=== PATIENT | male | born 2000 | race Caucasian/White ===

== ENCOUNTER → 2023-02-08 10:36 | Outpatient (REF) | payer MEDICARE, MEDICAID, SELFPAY ==
--- NOTE | 2023-02-08 10:40 | HM_ITS ---
* Total monitoring time 2 days and 6 hours. * Underlying rhythm is sinus. Average ventricular rate 86/Min. Range 52 to 153/Min. * About 25% of the time, rate > 100/Min. * No significant ectopy. * No significant pauses or AV blocks. * No atrial flutter or fibrillation. * Patient markers correlate with sinus rhythm and sinus tachycardia. Diary events include fast heartbeat which correlate with patient markers. MTDD
== END ==
LOC: HO.CARD 10:36
PROVIDERS: PCP Family Medicine; Visit Provider Family Medicine
DX: R00.2 Palpitations (principal)
CPT/HCPCS: 93225

== ENCOUNTER 2023-02-13 09:57 | Outpatient (REF) | payer MEDICARE, MEDICAID, SELFPAY ==
--- NOTE | ~2023-02-13 | XR_ITS ---
EXAMINATION: XR chest 2V CLINICAL INFORMATION: Reason for Exam R00.2 - Palpitations COMPARISON: No prior chest x-ray available in our system for comparison at the time of this dictation. TECHNIQUE: XR chest 2V Lungs and [place]: Both lungs are clear. Pleura: Normal. Costophrenic angles are sharp. No pneumothorax. Heart: The heart is normal in size. Mediastinum: The mediastinum is within normal limits.. Bones: Skeletal structures included are normal for patient's age. XR/XR chest 2V IMPRESSION: No radiographic evidence of acute cardiopulmonary disease.
[2023-02-13 11:16] LABS: MANUAL DIFF FLAG NO
[2023-02-13 11:18] LABS: Basophils Percent Auto 0.5 % (0-2); Hematocrit 41.8 % (42.0-52.0); Imm Gran Abs Auto 0.01 X10*3/uL (0.00-0.03); Imm Gran Pct Auto 0.3 % (0.0-0.4); Lymphocytes Percent Auto 25.3 % (20-40); Mean Corpuscular HGB Conc 33.5 g/dl (31.0-36.0); Mean Corpuscular Hemoglobin 29.9 pg (27.0-33.0); Mean Corpuscular Volume 89.1 fL (80.0-98.0); Monocytes Absolute Auto 0.2 X10*3/uL (0.1-1.2); Monocytes Percent Auto 6.3 % (2-11); Neutrophils Absolute Auto 2.6 x10*3/uL (2.0-8.3); Neutrophils Percent Auto 66.6 % (45-73); Platelet Count 183 X10*3/uL (160-400); Red Blood Count 4.69 X10*6/uL (4.60-5.80); Red Cell Distribution Width 11.9 % (11.0-16.0); White Blood Count 3.8 X10*3/uL (4.8-10.8)
[2023-02-13 11:27] LABS: Appearance Urine Clear; Color Urine Yellow; Glucose Urine UA Negative (Negative); Leukocyte Esterase Urine Negative (Negative); Nitrite Urine Negative (Negative); Urine Blood Negative (Negative); Urine Ketones Negative (Negative); Urine Protein Negative (Neg-Trace)
[2023-02-13 12:14] LABS: D Dimer High Sensitivity 909 NG/ML
[2023-02-13 12:17] LABS: Alanine Aminotransferase 18 U/L (0-40); Albumin Level 4.6 g/dL (3.5-5.0); Alkaline Phosphatase 82 U/L (39-117); Anion Gap 10 (12-20); Aspartate Amino Transferase 20 U/L (5-37); Bilirubin Total 0.5 mg/dL (0.0-1.0); Blood Urea Nitrogen 11 mg/dL (9-16); Calcium 10.1 mg/dL (8.4-10.2); Carbon Dioxide 31 mmol/L (22-29); Chloride 104 mmol/L (96-108); Cholesterol 144 mg/dL; Estimated Glomerular Filt Rate > 60; Glucose Fasting 85 mg/dL (60-99); HDL Cholesterol 50 mg/dL; Potassium 4.6 mmol/L (3.3-5.1); Sodium 140 mmol/L (135-145)
[2023-02-13 12:27] LABS: Troponin-I High Sensitivity < 2.7 ng/L (<3.5-35.0)
[2023-02-13 13:07] LABS: TSH reflex Free T4 0.59 uIU/mL (0.32-4.0)
[2023-02-13 13:27] LABS: CT PCR NOT DETECTED (Not Detect.); NG PCR NOT DETECTED (Not Detect.)
[2023-02-13 16:01] LABS: LDL Cholesterol Calculated 83 mg/dl; Triglycerides 57 mg/dL
[2023-02-15 08:49] LABS: HBS Num1 2.31 mIU/mL (0-7.99); HBc Num1 0.13 S/CO (0.00-0.79); HBsAGNum1 0.38 S/CO (0.00-0.99); HIV AB/AG Nonreactive (Nonreactive); HIV Num 1 0.08 S/CO (0.00-0.99); Hepatitis B Core Antibody Nonreactive (Nonreactive); Hepatitis B Surface Antigen Negative (Negative); ~HepC Num1 0.24 S/CO (0.00-0.79); ~Hepatitis B Surface Antibody NONREACTIVE (Nonreactive); ~Hepatitis C Antibody Nonreactive (Nonreactive)
[2023-02-15 09:09] LABS: Syphilis Screen Nonreactive (Nonreactive)
== END 2023-02-13 09:58 | disposition home or self-care (01) ==
LOC: HO.HMGCLDS 09:57
PROVIDERS: PCP Family Medicine; Visit Provider Family Medicine
DX: Z00.00 Encounter for general adult medical examination without abnormal findings (principal); Z11.4 Encounter for screening for human immunodeficiency virus [HIV]; R00.2 Palpitations; Z20.2 Contact with and (suspected) exposure to infections with a predominantly sexual mode of transmission; Z11.59 Encounter for screening for other viral diseases; Z72.89 Other problems related to lifestyle
CPT/HCPCS: 0353U; 71046; 80053; 80061; 81003; 84443; 84484; 85025; 85379; 86704; 86706; 86780; 86803; 87340; 87389

== ENCOUNTER 2024-12-13 14:48 | Outpatient (AMB) | payer MEDICARE, MEDICAID, SELFPAY ==
--- NOTE | 2024-12-13 15:10 | MHC.PC.OV ---
Vital Signs 12/13/24 15:14 Height 6 ft 3 in Weight 194 lb BMI 24.2 BP 120/64 Blood Pressure Location Rt brachial Position Sitting Respiration 14 Pulse 71 Pulse Source Pulse Oximeter Temp 97.8 F Temp Source Oral Pulse Oximetry (%) 97 Oxygen Delivery Method Room Air Intake Visit Reasons: Stomach ache Intake Note: pt having GI sx constant burping and upset stomache Or Scrub Tech Required: No Allergies guaifenesin Allergy (Mild, Verified 12/13/24 15:13) ticks Medication List - Last Reconciled 12/13/24 by Brendan Shabazz MD methylphenidate HCl CD 60 mg PO QAM omeprazole 20 mg PO DAILY 30 days sertraline 50 mg PO DAILY simethicone 80 mg PO BID-QID PRN 30 days Tobacco use date assessed: 02/02/23 HPI Stomach ache HPI Details 24 y/o male presents today with complaints of abd. discomfort. Notes some pain, belching. Hx of ADD - has tried numerous medications and they note it tends to worsen palpitations. Had done a holter test before for palpitations which showed some tachycardia. HPI Comments History of Present Illness Details Documentation assistance for Brendan Shabazz MD, was provided by Virgilio Joe,? Psych Sales Specialist on 12/13/2024 at 3:37 PM EST. I, Dr. Shabazz, have read, observed, and verified documentation. ?? [facility] Medical History (Updated 12/13/24 @ 15:42 by Brendan Shabazz MD) Tourettes syndrome Surgical History (Updated 02/02/23 @ 16:13 by Estrella Tan CMA) No pertinent past surgical history Social History (Updated 02/02/23 @ 16:13 by Estrella Tan CMA) Alcohol intake: never Patient Tobacco Use Status: Never used Tobacco e-Cigarette/Vaping Use: Never Used Second Hand Smoke Exposure: No service: No Current occupational exposures/hazards: No Hearing needs: No Questionnaire PHQ-9 Over the last 2 weeks, how often have you been bothered by any of the following problems? 1. Little interest or pleasure in doing things: not at all 2. Feeling down, depressed, or hopeless: not at all 3. Trouble falling or staying asleep, or sleeping too much: not at all 4. Feeling tired or having little energy: not at all 5. Poor appetite or overeating: not at all 6. Feeling bad about yourself - or that you are a failure or have let yourself or your family down: not at all 7. Trouble concentrating on things, such as reading the newspaper or watching television: not at all 8. Moving or speaking so slowly that other people could have noticed. Or the opposite - being so fidgety or restless that you have been moving around a lot more than usual: not at all 9. Thoughts that you would be better off or of hurting yourself in some way: not at all Total score: 0 Source: Developed by Drs. David Mijares, Radha Levy, Cj Enamorado and colleagues, with an educational jorge from [employer]. Thrive Questionnaire Date Thrive assessed: 10/20/22 I am a: Patient What is your living situation today?: I have a steady place to live Within the past 12 months, did the food you bought not last and you didn't have the money to get more?: Never true Within the past 12 months, did you worry whether your food would run out before you got money to buy more?: Never true Do you have trouble paying for medicines?: No Do you have trouble getting transportation to medical appointments?: No Do you have trouble paying your heating and electricity bill?: No Do you have trouble taking care of your child, family member or friend?: No Do you have trouble with day-to-day activities such as bathing, preparing meals, shopping, managing finances, etc.?: No Are you currently unemployed and looking for a job?: No Are you interested in more education?: No Please select the resources that you would like help with: None Currently or been in a relationship where the following occur: I choose not to answer THRIVE Score: 0 AUDIT C Alcohol Use Questionnaire (AUDIT-C) 1. How often do you have a drink containing alcohol?: Never Total Score: 0 JUANY-7 AMB Questionnaire JUANY-7 Date JUANY - 7 assessed: 10/20/22 Feeling nervous, anxious, or on edge: 0 = Not at all Not being able to stop or control worryin = Not at all Worrying too much about different things: 0 = Not at all Trouble relaxin = Not at all Being so restless that it is hard to sit still: 0 = Not at all Becoming easily annoyed or irritable: 0 = Not at all Feeling afraid as if something awful might happen: 0 = Not at all Total JUANY-7 score (0-4 normal; 5-9 mild; 10-14 moderate; 15-21 severe): 0 Source: Developed by Drs. David Mijares, Radha eLvy, Cj Enamorado and colleagues, with an educational jorge from [employer]. Review of Systems Const Denies chills, Denies fatigue, Denies fever(s), Denies headache(s) and Denies weakness ENT Denies dizziness and Denies headache(s) Card Denies dyspnea Resp Denies cough, Denies dyspnea, Denies wheezing and Denies other (shortness of breath) GI Reports abdominal pain Musc Denies numbness and Denies tingling Neuro Denies dizziness, Denies headache(s), Denies numbness, Denies tingling and Denies weakness Psych Denies anxiety and Denies depression Endo Denies fatigue Aller/Immun Denies wheezing Physical exam (Primary Care) Vital Signs: Last Vital Signs Temp 97.8 F 12/13/24 15:14 Pulse 71 12/13/24 15:14 Resp 14 12/13/24 15:14 BP 120/64 12/13/24 15:14 Pulse Ox 97 12/13/24 15:14 Oxygen Delivery Method Room Air 12/13/24 15:14 BMI result Body Mass Index 24.2 Tobacco/Smoking Status: Tobacco use Status Tobacco use date assessed 02/02/23 12/13/24 15:11 Patient Tobacco Use Status Never used Tobacco 12/13/24 15:11 e-Cigarette/Vaping Use Never Used 12/13/24 15:11 PHQ-9: PHQ-9 Score PHQ-9: Total score 0 12/13/24 15:26 Thrive Assessment: Date of Thrive Assessment Date Thrive assessed 10/20/22 12/13/24 15:11 Currently or been in a relationship where the following occur: I choose not to answer Const General: well developed; No acute distress Nutritional Appearance: well nourished Orientation/consciousness: patient oriented x3 HENMT Head: Yes normocephalic and Yes atraumatic Eyes General: appearance normal, both eyes and all related structures Pupils: Equal, round and reactive pupils present EOM: EOMs intact bilaterally Resp Effort & Inspection: normal respiratory effort Neuro General: patient oriented x3 and gait normal Cranial nerves: Yes Equal, round and reactive pupils present Psych Affect: normal affect Coding Level of Care Code Est Pt Level 4 (54121) Diagnoses Abdominal discomfort R10.9 ADD (attention deficit disorder) F98.8 Palpitations R00.2 Assessment & Plan Assessment & Plan (1) Abdominal discomfort: Code(s): R10.9 - Unspecified abdominal pain Category: Medical Plan: Gas?and?burping Eat?more?slowly Avoid?trigger?foods?fluids. Hydrate?well Try?simethicone Trial?omeprazole Symptoms?diary?recommended Referred?to?Gastroenterology (2) ADD (attention deficit disorder): Code(s): F98.8 - Other specified behavioral and emotional disorders with onset usually occurring in childhood and adolescence Category: Medical Plan: History?of?ADD?and?patient?has?a?specialist?who?has?tried?numerous?medications?however?they?tend?to?worsen?palpitations. Patient?had?an?EKG?and?Holter?monitor?test?in?2022.??EKG?was?normal. Will?retest?showed?some?tachycardia Repeat?EKG?today: ?Normal?sinus?rhythm, normal?axis, no?hypertrophy. ?Early?repolarization?ST?changes, in young thin patient. Will?repeat?Holter?monitor?test. Referred?to?cardiology (3) Palpitations: Code(s): R00.2 - Palpitations Category: Medical Plan: As?above,?referred?to?Cardiology Orders: Orders ECG holter monitor 48 hour Today R00.2 - Palpitations AMB EKG-In Office Today R00.2 - Palpitations Referrals Cardiology Referral R00.2 - Palpitations Gastroenterology Referral R10.9 - Unspecified abdominal pain, R14.0 - Abdominal distension (gaseous) Medications: New omeprazole 20 mg PO DAILY 30 days 30 caps 0RF simethicone 80 mg PO BID-QID 30 days PRN 120 tabs 0RF abdominal distention
[2024-12-13 15:14] VITALS: BP 120/64; PULSE 71; RESP 14; TEMP 36.6; O2SAT 97; BMI 24.2
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
--- OUTSIDE RECORDS SUMMARY | 2024-12-13 18:16 | XMS_ITS | Encounter Summary ---
Author Organization [facility] Address [address] [place] [address] Phone Care Team Providers Care Cardiopulmonary Technologist Name Role Phone Provider, Pola DE LEON Primary Care Provider [phone] Encounter Details Date Type Department Care Team (Late st Contact Info) Description 01/06/2010 Documentation [facility] Family Medicine [address] [place] [address] Family Medicine, Physician [address] [place], [place] [id number] Social History Tobacco Use Types Packs/Day Years Used Date Smoking Tobacco: Never Assessed Sex and Gender Information Value Date Recorded Sex Assigned at Male 07/21/2019 3:26 PM EDT Legal Sex Male 6:14 PM EDT Gender Identity Male 07/21/2019 3:26 PM EDT Sexual Orientation Straight 07/21/2019 3: 26 PM EDT documented as of this encounter Plan of Treatment Not on file documented as of this encounter Visit Diagnoses Not on filedocumented in this encounter Care Teams Cardiopulmonary Technologist Relationship Specialty Start Date End Date Provider, MD Pola [address] [place] [address] PCP - General Pediatrics 05/12/22 08/16/24 documented as of this encounter
--- OUTSIDE RECORDS SUMMARY | 2024-12-13 18:16 | XMS_ITS | Encounter Summary ---
Author Organization [facility] Address [address] [place] [address] Phone Care Team Providers Care Chief Innovation Officer Name Role Phone Provider, Pola DE LEON Primary Care Provider [phone] Encounter Details Date Type Department Care Team (Late st Contact Info) Description 03/11/2010 Documentation [facility] Family Medicine [address] [place] [address] Family Medicine, Physician [address] [place], [place] [address] Social History Tobacco Use Types Packs/Day Years [...] on filedocumented in this encounter Care Teams Chief Innovation Officer Relationship Specialty Start Date End Date Provider, MD Pola [address] [place] [address] PCP - General Pediatrics 05/12/22 08/16/24 documented as of this encounter
--- OUTSIDE RECORDS SUMMARY | 2024-12-13 18:16 | XMS_ITS | Clinical Summary ---
Author Organization [facility] it[facility] Address [address] [place] [address] Care Team Providers Care Microfilming Document Preparer Name Role Phone Unavailable Primary Care Provider Unavailabl e Social History Tobacco Use Types Packs/Day Years Used Date Smoking Tobacco: Never Assessed Sex and Gender Information Value Date Recorded Sex Assigned at Not on file Legal Sex Male 8:36 PM EST Gender Identity Not on file Sexual Orientation Not on file Plan of Treatment Health Maintenance Due Date Last Done Comments HPV Vaccines (1 - Male 3-dos e series) 2016 Meningococcal B Vacine (1 of 2 - Standard) 2017 DTaP,Tdap,and Td Vaccines (1 - Tdap) 2020 Hepatitis B Vaccines (1 of 3 - 19+ 3-dose series) 2020 Depression Screening 11/12/2023 HIV Screening 11/12/2023 Hepatitis C Screening 11/12/2023 Social Influencers of Health Screening 11/12/2023 COVID-19 Vaccine (1 - 2023-2 5 season) 2024 Influenza Vaccine (#1) 2024 HIB Vaccines Aged Out No longer eligi ble based on patient's age to complete this topic Hepatitis A Vaccines Aged Out No long er eligible based on patient's age to complete this topic IPV Vaccines Aged Out No longer eligi ble based on patient's age to complete this topic MMR Vaccines Aged Out No longer eligi ble based on patient's age to complete this topic Meningococcal ACWY Vaccine Aged Out N o longer eligible based on patient's age to complete this topic Pneumococcal Vaccine: Pediat rics (0 to 5 Years) and At-Risk Patients (6 to 64 Years) Aged Out No longer eligible b ased on patient's age to complete this topic RSV Immunization Patients Un francis 20 months Aged Out No longer eligible b ased on patient's age to complete this topic Varicella Vaccines Aged Out No longer eligible based on patient's age to complete this topic
--- OUTSIDE RECORDS SUMMARY | 2024-12-13 18:16 | XMS_ITS | Clinical Summary ---
Author Organization [facility] Address [address] [place] [address] Phone Care Team Providers Care Pie Baker Name Role Phone Unavailable Primary Care Provider Unavailabl e Allergies Active Allergy Reactions Criticality Noted Date Comments Atomoxetine Gluten Meal Guanfacine Medications adapalene 0.1 % cream APPLY CREAM EXTERNALLY AT BEDTIME 0 9 Active BENZOYL PEROXIDE 10 % external wash APPLY TWICE A DAY TO [place] AND ONCE IN THE MORNING TO THE FACE 1 9 Active clindamycin 1 % gel APPLY TO FACE IN THE MORNING AFTER USING BENZOYL PEROXIDE WASH DIRECTED 0 9 Active CONCERTA 54 MG CR tablet TAKE ONE TABLET BY MOUTH EVERY DAY IN THE MORNING. FOR ADHD 0 9 Active Differin 0.1 % gel APPLY ONE APPLICATION EXTERNAL AT BEDTIME TO BACK AND FACE 2 0 Active clindamycin 1 % lotion APPLY 1 APPLICATION TO TRUNK AND FACE TWICE A DAY 5 0 Active sertraline 100 MG tablet Take 100 mg by mouth once daily. 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 Immunizations Immunization Administration Dates Next Due COVID-19 Pfizer, monovalent, 12+ years 1 DTaP 12/22/2006, 3,04/28/2002,11/29 DTaP 5 12/22/2006, 3,04/28/2002,01/31,2001 HPV Vaccine 9 Valent 05/23/2019,01/17/2019,07/20 Hep A, ped/adol 07/21/2019,07/20/2018 Hep B, ped/adol 07/03/2002,2001,2001 Hib (PRP-T) 01/17/2003, 2,01/31/2002,11/29 IPV 12/22/2006, 2,01/31/2002,11/29 MMR 11/10/2005,09/26/2002 Meningococcal Conj (Menactra) MCV4P 07/20/2018,0 10/26/2012 Pneumococcal Conjugate 05/18/2003,2001,01/31/2002,11/29 Tdap 10/26/2012 Varicella 12/22/2006,09/26/2002 Family History Medical History Relation Name Comments Anxiety disorder Father Diabetes Maternal Grandmother Hyperlipidemia Mother Migraines Mother Relation Name Status Comments Brother radha Alive Brother: Alive and well Father Alive Father: Alive a nd well/anxiety disorder Maternal Grandfather Maternal Grandmother Alive DM type 2 diagnosed with DMII WO CMP NT ST UNCNTR Mother Alive Mother: Migrain es, Elevated cholesterol Other Family history of Diabetes mellitus, Family history of Asthma, Family history of Developmental dislocation of hip, Family history of Obesity/Siblings: one twin brother healthy Paternal Grandfather Paternal Grandmother Alive stomach issues Social History Tobacco Use Types Packs/Day Years Used Date Smoking Tobacco: Never Smokeless Tobacco: Never Hunger/Food Answer Date Recorded In the last 12 months, did y ou or your family ever eat less than you felt you should because there wasn't enough money for food? No 07/31/2020 Stable Housing Answer Date Recorded Are you worried that in the next 2 months you may not have stable housing? No 07/31/2020 Transportation Concerns Answer Date Rec orded In the last 12 months, have you or your family ever had to go without healthcare because you didn't have a way to get there? No 07/31/2020 Hazards in Home Answer Date Recorded Think about the place you li ve. Do you have problems with any of the following? Pests (mice or roaches), mold, no/not working smoke detectors, water leaks, no window guards. No 2019 Financing Utilities Answer Date Recorde d In the last 12 months, has t he electric, gas, oil, or water company threatened to shut off your services in your home? No 07/31/2020 Safety at Home Answer Date Recorded Are you or your family worried about feeling saf e in your home? No 07/31/2020 Outside Support Answer Date Recorded Do you feel that you need mo re support from other people or programs to help you care for yourself or your family? No 07/31/2020 Understanding Health Concerns Answer Da te Recorded Do you need help understandi ng your or your child's healthcare needs (diagnosis, medications, plan, etc.)? No 07/31/2020 Financing Health Concerns Answer Date R ecorded In the last 12 months, was t here a time when your child needed to see a doctor or get medications or supplies but could not because of cost? No 07/31/2020 Missing School or Work Answer Date Maximino rded Did you or your child miss s chool or work because of a health problem that could have been avoided? No 07/31/2020 Sex and Gender Information Value Date Recorded Sex Assigned at Male 07/21/2019 3:26 PM EDT Legal Sex Male 6:14 PM EDT Gender Identity Male 07/21/2019 3:26 PM EDT Sexual Orientation Straight 07/21/2019 3: 26 PM EDT Last Filed Vital Signs Vital Sign Reading Time Taken Comments Blood Pressure 116/68 08/26/2021 2:58 PM EST Pulse - - Temperature 36.9 ??C (98.5 ??F) 06/17/2015 12:00 AM E DT Respiratory Rate - - Oxygen Saturation - - Inhaled Oxygen Concentration - - Weight 73.7 kg (162 lb 8 oz) 01/27/2022 3:09 PM EDT Height 190.5 cm (6' 3 ) 08/26/2021 2:58 PM EST Body Mass Index 20.31 08/26/2021 2:58 PM EST Plan of Treatment Health Maintenance Due Date Last Done Comments Consider Men B Vaccine (1 of 2 - Bexsero 2-dose series) 2017 Men B Vaccine (1 of 2 - Standard) 2017 Influenza Vaccines (#1) 2024 COVID-19 Vaccine (2 - 2023-2 5 season) 2024 08/26/2021 DTaP,Tdap,and Td Vaccines (8 - Td or Tdap) 01/28/2032 01/27/2022, 10/26/2012, 12/22/2006, Additional history exists Hepatitis B Vaccines Completed 07/03/2002, 2001, 2001 HIB Vaccines Completed 01/17/2003, 04/17, 01/31/2002, Additional history exists Pneumococcal Vaccine Completed 05/18/2003, 04/28/2002, 01/31/2002, Additional history exists MMR Vaccines Completed 11/10/2005, 09/26/2002 IPV Vaccines Completed 12/22/2006, 06/18, 01/31/2002, Additional history exists Varicella Vaccines Completed 12/22/2006, 09/26/2002 Meningococcal Vaccine Completed 07/20/2018, 013 HPV Vaccines Completed 05/23/2019, 11/2018, 07/20/2018 Hepatitis A Vaccines Completed 07/21/2019, 07/20/[address] [facility] NON PCC
--- OUTSIDE RECORDS SUMMARY | 2024-12-13 18:16 | XMS_ITS | Encounter Summary ---
Author Organization [facility] Address [address] [place] [address] Phone Care Team Providers Care Manufacturing Manager Name Role Phone Provider, Pola DE LEON Primary Care Provider [phone] Encounter Details Date Type Department Care Team (Late st Contact Info) Description 03/06/2018 [facility]counter [facility] [address] [address] Cyndy Good MD [address] [place] [address] Social History Tobacco Use Types Packs/Day Years [...] on filedocumented in this encounter Care Teams Manufacturing Manager Relationship Specialty Start Date End Date Provider, MD Pola [address] [place] [address] PCP - General Pediatrics 05/12/22 08/16/24 documented as of this encounter
--- OUTSIDE RECORDS SUMMARY | 2024-12-13 18:16 | XMS_ITS | Encounter Summary ---
Author Organization [facility] Address [address] [place] [address] Phone Care Team Providers Care Operations Consultant Name Role Phone Provider, Pola DE LEON Primary Care Provider [phone] Encounter Details Date Type Department Care Team (Late st Contact Info) Description 05/12/2010 Documentation [facility] [place] Family Medicine [address] [place] [address] Family Medicine, Physician [address] [place], [place] [id number] Social History Tobacco Use Types Packs/Day Years [...] on filedocumented in this encounter Care Teams Operations Consultant Relationship Specialty Start Date End Date Provider, MD Pola [address] [place] [address] PCP - General Pediatrics 05/12/22 08/16/24 documented as of this encounter
--- OUTSIDE RECORDS SUMMARY | 2024-12-13 18:16 | XMS_ITS | Encounter Summary ---
Author Organization [facility] Address [address] [place] [address] Phone Care Team Providers Care Corporate Planning Manager Name Role Phone Provider, Pola DE LEON Primary Care Provider [phone] Encounter Details Date Type Department Care Team (Late st Contact Info) Description 06/03/2017 Conversion Encounter [facility] - [address] [address] Social History Tobacco Use Types Packs/Day Years [...] on filedocumented in this encounter Care Teams Corporate Planning Manager Relationship Specialty Start Date End Date Provider, MD Pola [address] [place] [address] PCP - General Pediatrics 05/12/22 08/16/24 documented as of this encounter
== END 2024-12-13 15:54 | disposition home or self-care (01) ==
PROVIDERS: PCP Family Medicine; Visit Provider Family Medicine
DX: R10.9 Unspecified abdominal pain (principal); F98.8 Other specified behavioral and emotional disorders with onset usually occurring in childhood and adolescence; R00.2 Palpitations

== ENCOUNTER → 2024-12-13 14:48 | Outpatient (BNVA) | payer MEDICARE, MEDICAID, SELFPAY | PROVIDERS: PCP Family Medicine; Visit Provider Family Medicine | DX: R10.9 Unspecified abdominal pain (principal); R00.2 Palpitations; F98.8 Other specified behavioral and emotional disorders with onset usually occurring in childhood and adolescence | CPT/HCPCS: 99212 ==

== ENCOUNTER 2025-01-03 15:35 | Outpatient (AMB) | payer MEDICARE, MEDICAID, SELFPAY ==
--- NOTE | 2025-01-03 15:43 | A.OFFPC_ITS ---
Vital Signs 01/03/25 15:44 Height 6 ft 3 in Weight 191 lb 4 oz BMI 23.9 BP 104/70 Blood Pressure Location Rt brachial Position Sitting Respiration 14 Pulse 84 Pulse Source Pulse Oximeter Pulse Oximetry (%) 95 Oxygen Delivery Method Room Air Intake Visit Reasons: CPE Intake Note: Physical Pilot Supervisor Required: No Allergies guaifenesin Allergy (Mild, Verified 01/03/25 15:43) ticks Tobacco use date assessed: 01/03/25 Dental Screening Dental Screen Date: 01/03/25 Did you have a dental visit in the last 12 months?: Yes Did you have a dental problem in the last 6 months where you did not have access to dental care?: No Was dental information given to patient?: Patient has dentist HPI CPE HPI Details Patient is a 24-year-old male who presents today for a physical exam. He normally follows with Dr. Shabazz. His mother is here today with him and states that he has been feeling fatigued for the last week. She states that he sleeps through the night without problems and then feels exhausted during the day. She says that this is more than his baseline. No fever, chills, sore throat or swollen lymph nodes. Sibling had mono and wonders if he has something similar. Psych: ADD is currently managed with methylphenidate 60 mg daily. His anxiety is managed with sertraline 50 mg daily. GI: GERD is managed with omeprazole 20 mg daily and simethicone as needed. Overdue for labs. [facility] Medical History (Updated 01/03/25 @ 15:57 by Vira Cha PA-C) Tourettes syndrome Surgical History No pertinent past surgical history Family History (Updated 01/03/25 @ 15:44 by Vilma Johnson CMA) Other FH: mental illness Social History (Updated 02/02/23 @ 16:13 by Estrella Tan CMA) Housing: House Alcohol intake: never Patient Tobacco Use Status: Never used Tobacco e-Cigarette/Vaping Use: Never Used Second Hand Smoke Exposure: No service: No Current occupational exposures/hazards: No Cognitive needs: No Hearing needs: No Vision needs: No Questionnaire Thrive Questionnaire Date Thrive assessed: 12/13/24 I am a: Patient What is your living situation today?: I have a steady place to live Within the past 12 months, did the food you bought not last and you didn't have the money to get more?: Never true Within the past 12 months, did you worry whether your food would run out before you got money to buy more?: Never true Do you have trouble paying for medicines?: No Do you have trouble getting transportation to medical appointments?: No Do you have trouble paying your heating and electricity bill?: No Do you have trouble taking care of your child, family member or friend?: No Do you have trouble with day-to-day activities such as bathing, preparing meals, shopping, managing finances, etc.?: No Are you currently unemployed and looking for a job?: No Are you interested in more education?: No Please select the resources that you would like help with: None Currently or been in a relationship where the following occur: I choose not to answer THRIVE Score: 0 JUANY-7 AMB Questionnaire JUANY-7 Date JUANY - 7 assessed: 10/20/22 Source: Developed by Drs. David Mijares, Radha Levy, Cj Enamorado and colleagues, with an educational jorge from [employer]. Physical exam (Primary Care) Vital Signs: Last Vital Signs Pulse 84 01/03/25 15:44 Resp 14 01/03/25 15:44 BP 104/70 01/03/25 15:44 Pulse Ox 95 01/03/25 15:44 Oxygen Delivery Method Room Air 01/03/25 15:44 BMI result Body Mass Index 23.9 Tobacco/Smoking Status: Tobacco use Status Tobacco use date assessed 01/03/25 01/03/25 15:45 Patient Tobacco Use Status Never used Tobacco 01/03/25 15:45 e-Cigarette/Vaping Use Never Used 01/03/25 15:45 Thrive Assessment: Date of Thrive Assessment Date Thrive assessed 12/13/24 01/03/25 15:45 Currently or been in a relationship where the following occur: I choose not to answer Const Orientation/consciousness: patient oriented x3 HENMT Ears: hearing grossly normal bilaterally and TM's normal bilaterally General nose exam: No nasal polyps present Face and sinus: Yes sinuses nontender Mouth: Normal oral and palatal mucosa present Eyes Pupils: Equal, round and reactive pupils present EOM: EOMs intact bilaterally Neck Neck: Yes full ROM and Yes no lymphadenopathy Thyroid: Thyroid normal Chest Chest palpation & inspection: normal inspection of the chest Resp Auscultation: clear to auscultation bilaterally Cardio Rate: regular rate Rhythm: regular rhythm Heart sounds: S1 normal heart sound present and S2 normal heart sound present Peripheral pulses: Peripheral pulses 2+ throughout GI Other: Soft, nontender Auscultation: normal bowel sounds Rectal Exam - Male: Yes deferred Other: Declined genital exam. Reports doing self exams General: Yes no CVA tenderness Back/Spine/Pelvis Other: Nontender Back: no CVA tenderness Skin General skin exam: no rashes or lesions noted Neuro General: patient oriented x3, gait normal, CN's II-XI intact bilaterally and deep tendon reflexes 2+ bilaterally Cranial nerves: Yes Equal, round and reactive pupils present Motor exam (neuro): 5/5 motor strength present throughout Sensory Exam: double simultaneous stimulation for sensation normal Coordination: [id number] test normal and Romberg test negative Extrem General: Yes normal to inspection and Yes full ROM Psych Affect: normal affect Attitude: cooperative Thought process: Normal thought process present Thought content: Normal thought content present Insight: Good insight present (Psych) Judgement: Good judgement present (Psych) Coding Level of Care Code Est Pt Prev Care 18-39y(02058) Diagnoses Adult general medical exam Z00.00 Attention or concentration deficit R41.840 Attention deficit type: attention or concentration deficit Anxiety F41.9 Bloating R14.0 Fatigue R53.83 Assessment & Plan Assessment & Plan (1) Adult general medical exam: Code(s): Z00.00 - Encounter for general adult medical examination without abnormal findings Category: Medical Plan: Health maintenance reviewed. Labs ordered. Offered STD testing but declines. States that he is not sexually active. (2) ADD (attention deficit disorder): Code(s): F98.8 - Other specified behavioral and emotional disorders with onset usually occurring in childhood and adolescence Category: Medical Qualifiers: Attention deficit type: attention or concentration deficit Qualified Code(s): R41.840 - Attention and concentration deficit Plan: stable (3) Anxiety: Code(s): F41.9 - Anxiety disorder, unspecified Category: Medical Plan: as above (4) Bloating: Code(s): R14.0 - Abdominal distension (gaseous) Category: Medical Plan: Feels improvement with the omeprazole and simethicone. Has a appointment with GI (5) Fatigue: Code(s): R53.83 - Other fatigue Category: Medical Plan: Labs ordered today. We will follow up pending test results. Advised to follow up if not improved in the next week or so with PCP. Advised to also follow up sooner if anything worsens or changes. Orders: Orders Comprehensive [place]. Panel Fast 01/03/25 F41.9 - Anxiety disorder, unspecified, F98.8 - Other specified behavioral and emotional disorders with onset usually occurring in childhood and adolescence, R53.83 - Other fatigue, Z00.00 - Encounter for general adult medical examination without abnormal findings Lipid Panel 01/03/25 F41.9 - Anxiety disorder, unspecified, F98.8 - Other specified behavioral and emotional disorders with onset usually occurring in childhood and adolescence, R53.83 - Other fatigue, Z00.00 - Encounter for general adult medical examination without abnormal findings TSH reflex Free T4 01/03/25 F41.9 - Anxiety disorder, unspecified, F98.8 - Other specified behavioral and emotional disorders with onset usually occurring in childhood and adolescence, R53.83 - Other fatigue, Z00.00 - Encounter for general adult medical examination without abnormal findings IRON PROFILE 01/03/25 F41.9 - Anxiety disorder, unspecified, F98.8 - Other specified behavioral and emotional disorders with onset usually occurring in childhood and adolescence, R53.83 - Other fatigue, Z00.00 - Encounter for general adult medical examination without abnormal findings Complete Blood Count Auto Diff 01/03/25 F41.9 - Anxiety disorder, unspecified, F98.8 - Other specified behavioral and emotional disorders with onset usually occurring in childhood and adolescence, R53.83 - Other fatigue, Z00.00 - Encounter for general adult medical examination without abnormal findings Lyme IgG/IgM w/reflex to WB 01/03/25 F41.9 - Anxiety disorder, unspecified, F98.8 - Other specified behavioral and emotional disorders with onset usually occurring in childhood and adolescence, R53.83 - Other fatigue, Z00.00 - Encounter for general adult medical examination without abnormal findings Vitamin B12 and Folate 01/03/25 F41.9 - Anxiety disorder, unspecified, F98.8 - Other specified behavioral and emotional disorders with onset usually occurring in childhood and adolescence, R53.83 - Other fatigue, Z00.00 - Encounter for general adult medical examination without abnormal findings Monotest 01/03/25 F41.9 - Anxiety disorder, unspecified, F98.8 - Other specified behavioral and emotional disorders with onset usually occurring in childhood and adolescence, R53.83 - Other fatigue, Z00.00 - Encounter for general adult medical examination without abnormal findings
[2025-01-03 15:44] VITALS: BP 104/70; PULSE 84; RESP 14; O2SAT 95; BMI 23.9
== END 2025-01-03 15:55 | disposition home or self-care (01) ==
LOC: HO.HMCFM 15:36
PROVIDERS: PCP Family Medicine; Visit Provider Physician Assistant
DX: Z00.00 Encounter for general adult medical examination without abnormal findings (principal); R41.840 Attention and concentration deficit; F41.9 Anxiety disorder, unspecified; R14.0 Abdominal distension (gaseous); R53.83 Other fatigue

== ENCOUNTER → 2025-01-03 15:35 | Outpatient (BNVA) | payer MEDICARE, MEDICAID, SELFPAY | PROVIDERS: PCP Family Medicine; Visit Provider Physician Assistant | DX: Z00.00 Encounter for general adult medical examination without abnormal findings (principal); R41.840 Attention and concentration deficit; F41.9 Anxiety disorder, unspecified; R14.0 Abdominal distension (gaseous); R53.83 Other fatigue | CPT/HCPCS: 99395 ==

== ENCOUNTER 2025-02-16 15:15 | Outpatient (AMB) | payer MEDICARE, MEDICAID, SELFPAY ==
--- OUTSIDE RECORDS SUMMARY | 2025-02-16 15:16 | XMS_ITS | Data Portability ---
Author Organization DAMARIS Gottlieb s, [address] Address [address] [place] [id number] Assessment No assessment recorded. Plan of Treatment Reminders Order Date Submit Date Provider Last Modified By Organization Details Last Modified Time Details Appointments None recorded. Lab None recorded. Referral orthopedic surgeon referral 2022 023 [email or web address] [facility], [address], [place], [address], 16:55:19 Procedures None recorded. Surgeries None recorded. [...] Limited extension of the elbow. 2022 023 [facility], [address] [place] [address], [place], [address], 14:51:31 Medication Orders ibuprofen 600 mg tablet 2022 023 [id number], [address] [facility], [place], [address], 14:14:35 Patient TargetsNo targets recorded. Patient Instructions Encounter Date Encounter Id Patient Instructions Last Modified By Organization Details Last Modified Time 01/30/2023 [id number] elbow sprain: care instructions Not available 01/30/2023 14:14:24 elbow bursitis: exercises [email or web address] Not available 01/30/2023 14:14:24 Reason for Referral Orthopedic Surgeon Referral for Fracture of distal end of humerus Referring Physician: Xiao Drake, Urgent Care, Encounter Date: 01/30/2023 Results Created Date Observation Date Name Description Value Unit Range Abnormal Flag Note LastModifiedBy Organization Detail LastModifiedTime 01/31/20 23 01/30/2023 XR, elbow , 3 or more view No observ ation record ed. [facility] [address] [place], [address], 01/30/2023 15:29:09 Result Notes None recorded. Problems Name Problem SNOMED Code Status Onset Date Resolution Date Notes Provider Name and Address Organization Details Recorded Time Anxiety 53497762 Active 2022 IRIS COUVERTIE R null, [place] - [facility] 3 13:21:56 Attention deficit hyperactivity disorder, predominantly inattentive type 23569395 Active 2022 IRIS COUVERTIE R null, [place] - [facility] 3 13:22:01 Problem Notes None recorded. Procedures Surgical History None recorded. Imaging Results Imaging Date Name Status LastModified by Organiz ation Details LastModified Time 01/30/2023 XR, elbow, 3 or more view completed [email or web address] [facility] [address] [place], [address], 01/30/2023 15:29:09 Procedure Notes None recorded. Medical [...] Last Updated DateTime 190.5 cm 21.2 kg/m2 48947.7 g 97.8 [degF] 18 /min 82 /min 100 % 100 % 110 mm[Hg] 63 mm[Hg] PIPO Kraus PA - [facility] 13:23:31 Social History Question Answer Notes LastModified by [employer] ion Details LastModified Time Tobacco Smoking Status [...] SNOMED-CT Code Diagnosis ICD10 Code Diagnosis Note [id number] [facility] [address] 02/09/2019 10:41:33 02/09/2019 11:32:01 [id number] 2099_[facility] [address] [address] 11/18/2016 17:05:51 11/18/2016 18:09:[id number] [place] [address] [address] [address] 05/22/2016 18:31:22 05/22/2016 19:27:[id number] [place] [address] [address] [address] 09/06/2021 14:10:40 09/06/2021 16:18:[id number] [place] [address] [address] [address] 06/03/2017 14:35:22 06/03/2017 15:24:58 [id number] DAMARIS KIDD 21005_[facility] [address] [place] [address] 01/30/2023 12:42:42 01/30/2023 14:24:56 Contusion of right elbow [id number] S50.01XA X-ray shows some effusion in the [...] Fracture o f distal end of humerus [id number] S42.401A Will need to see orthopedis t [...] Beatty Member ID Guarantor Name 02/09/2019 1 [facility] TOGETHER WITH [facility] (MEDICAID HMO) [id number] Nash Grey [id number] Nash Grey 09/06/2021 1 [facility] TOGETHER WITH [facility] (MEDICAID O) [id number] Nash Grey [id number] Nash Grey 01/30/2023 1 [place]: [employer] Nash Grey [id number] Nash Grey 01/30/2023 2 [place] [facility] Nash Grey [id number] Nash Grey Notes Date Note Type Note [...] or clavicle pain. no LOC. DAMARIS KIDD On license of [facility] [place], [address], [place] - [facility] 01/30/2023 15:33:47
--- OUTSIDE RECORDS SUMMARY | 2025-02-16 15:16 | XMS_ITS | Encounter Summary ---
Author Organization [facility] Address [address] [place] [address] Phone Care Team Providers Care Uniformer Name Role Phone Provider, Pola DE LEON Primary Care Provider [phone] Encounter Details Date Type Department Care Team (Late st Contact Info) Description 03/06/2018 [facility]counter [facility] [address] [address] Cyndy Good MD [address] [place] [address] Social History Tobacco Use Types Packs/Day Years [...] on filedocumented in this encounter Care Teams Uniformer Relationship Specialty Start Date End Date Provider, MD Pola [address] [place] [address] PCP - General Pediatrics 05/12/22 08/16/24 documented as of this encounter
--- OUTSIDE RECORDS SUMMARY | 2025-02-16 15:16 | XMS_ITS | Encounter Summary ---
Author Organization [facility] Address [address] [place] [address] Phone Care Team Providers Care Fountain Dispenser Name Role Phone Provider, Pola DE LEON Primary Care Provider [phone] Encounter Details Date Type Department Care Team (Late st Contact Info) Description 01/06/2010 Documentation [facility] [place] [address] [place] [address] Family Medicine, Physician [address] [place], [place] [address] Social History Tobacco Use Types Packs/Day Years [...] on filedocumented in this encounter Care Teams Fountain Dispenser Relationship Specialty Start Date End Date Provider, MD Pola [address] [place] [address] PCP - General Pediatrics 05/12/22 08/16/24 documented as of this encounter
--- OUTSIDE RECORDS SUMMARY | 2025-02-16 15:16 | XMS_ITS | Clinical Summary ---
Author Organization [facility] ity Address [address] [place] [address] Care Team Providers Care Area Counselor Name Role Phone Unavailable Primary Care Provider [...] Male 3-dos e series) 2016 Meningococcal B Vaccine (1 o f 2 - Standard) 2017 DTaP,Tdap,and Td Vaccines (1 - Tdap) 2020 Hepatitis B Vaccines (1 of 3 - 19+ 3-dose series) 2020 Depression Screening 11/12/2023 HIV Screening 11/12/2023 Hepatitis C Screening 11/12/2023 Social Influencers of Health Screening 11/12/2023 COVID-19 Vaccine (1 - 2023-2 5 season) 2024 Influenza Vaccine (Season Ended) 2025 HIB Vaccines Aged Out No longer eligi [...]
--- OUTSIDE RECORDS SUMMARY | 2025-02-16 15:16 | XMS_ITS | Encounter Summary ---
Author Organization [facility] Address [address] [place] [address] Phone Care Team Providers Care Healthcare Project Manager Name Role Phone Provider, Pola DE LEON Primary Care Provider [phone] Encounter Details Date Type Department Care Team (Late st Contact Info) Description 03/11/2010 Documentation [facility] [place] Family Medicine [address] [place] [address] Family Medicine, Physician [address] [place], [place] [address] Social History Tobacco Use Types Packs/Day Years [...] on filedocumented in this encounter Care Teams Healthcare Project Manager Relationship Specialty Start Date End Date Provider, MD Pola [address] [place] [address] PCP - General Pediatrics 05/12/22 08/16/24 documented as of this encounter
--- OUTSIDE RECORDS SUMMARY | 2025-02-16 15:16 | XMS_ITS | Encounter Summary ---
Author Organization [facility] Address [address] [place] [address] Phone Care Team Providers Care Records Management Engineer Name Role Phone Provider, Pola DE LEON Primary Care Provider [phone] Encounter Details Date Type Department Care Team (Late st Contact Info) Description 06/03/2017 Conversion Encounter [facility] - [address] [address] Social History Tobacco Use Types Packs/Day Years [...] on filedocumented in this encounter Care Teams Records Management Engineer Relationship Specialty Start Date End Date Provider, MD Pola [address] [place] [address] PCP - General Pediatrics 05/12/22 08/16/24 documented as of this encounter
--- OUTSIDE RECORDS SUMMARY | 2025-02-16 15:16 | XMS_ITS | Encounter Summary ---
Author Organization [facility] Address [address] [place] [address] Phone Care Team Providers Care Shaker Out Name Role Phone Provider, Pola DE LEON Primary Care Provider [phone] Encounter Details Date Type Department Care Team (Late st Contact Info) Description 05/12/[address] [facility] [place] Family Medicine [address] [place] [address] Family Medicine, Physician [address] [place], [place] [address] Social History Tobacco Use Types Packs/Day Years [...] on filedocumented in this encounter Care Teams Shaker Out Relationship Specialty Start Date End Date Provider, MD Pola [address] [place] [address] PCP - General Pediatrics 05/12/22 08/16/24 documented as of this encounter
--- OUTSIDE RECORDS SUMMARY | 2025-02-16 15:16 | XMS_ITS | Clinical Summary ---
Author Organization [facility] Address [address] [place] [address] Phone Care Team Providers Care Intermediate Accountant Name Role Phone Unavailable Primary Care Provider [...] Health Maintenance Due Date Last Done Comments Men B Vaccine (1 of 2 - [...] Vaccines Completed 07/21/2019, 07/20/20 18 Insurance NON [facility] NON PCC
--- NOTE | 2025-02-16 16:12 | A.OFFPC_ITS ---
Intake Visit Reasons: 1 month exhaustion/test results Allergies guaifenesin Allergy (Mild, Verified 02/16/25 16:13) ticks Medication List - Last Reconciled 02/16/25 by Brendan Shabazz MD methylphenidate HCl CD 60 mg PO QAM omeprazole 20 mg PO DAILY 30 days sertraline 50 mg PO DAILY Tobacco use date assessed: 01/03/25 Dental Screening Dental Screen Date: 01/03/25 HPI 1 month exhaustion/test results HPI Details 24 y/o male presents to f/u fatigue. [facility] Medical History (Updated 02/16/25 @ 16:31 by Brendan Shabazz MD) Tourettes syndrome Surgical History No pertinent past surgical history Family History (Updated 01/03/25 @ 15:44 by Vilma Johnson CMA) Other FH: mental illness Social History (Updated 02/02/23 @ 16:13 by Estrella Tan CMA) Housing: House Alcohol intake: never Patient Tobacco Use Status: Never used Tobacco e-Cigarette/Vaping Use: Never Used Second Hand Smoke Exposure: No service: No Current occupational exposures/hazards: No Cognitive needs: No Hearing needs: No Vision needs: No Questionnaire Thrive Questionnaire Date Thrive assessed: 12/13/24 JUANY-7 AMB Questionnaire JUANY-7 Date JUANY - 7 assessed: 10/20/22 Source: Developed by Drs. David Mijares, Radha Levy, Cj Enamorado and colleagues, with an educational jorge from [employer]. Review of Systems Const Denies chills, Denies fatigue, Denies fever(s), Denies headache(s) and Denies weakness ENT Denies dizziness and Denies headache(s) Card Denies dyspnea Resp Denies cough, Denies dyspnea, Denies wheezing and Denies other (shortness of breath) Musc Denies numbness and Denies tingling Neuro Denies dizziness, Denies headache(s), Denies numbness, Denies tingling and Denies weakness Psych Denies anxiety and Denies depression Endo Denies fatigue Aller/Immun Denies wheezing Physical exam (Primary Care) Tobacco/Smoking Status: Tobacco use Status Tobacco use date assessed 01/03/25 02/16/25 16:14 Patient Tobacco Use Status Never used Tobacco 02/16/25 16:14 e-Cigarette/Vaping Use Never Used 02/16/25 16:14 Thrive Assessment: Date of Thrive Assessment Date Thrive assessed 12/13/24 02/16/25 16:14 Telehealth Telehealth Telehealth Platform: Telephone Location of provider rendering services: practice address Location of patient: address on file Patient Identification confirmed using: Name, : Yes Telehealth method: voice only Patient verbally consented to treatment: Yes Patient verbally consented to billing insurance company: Yes Patient informed of any privacy concerns related to visit: Yes Minutes spent on Phone/Video with Pt.: 10 Coding Level of Care Code Tele Est Pt Level 2 (00665) Diagnoses Fatigue R53.83 Assessment & Plan Assessment & Plan (1) Fatigue: Code(s): R53.83 - Other fatigue Category: Medical Plan: Significant?fatigue?at?last?visit?in?December. Lab?testing?shows?5/8 IgG?bands?positive. 0?IgM?bands positive. Unclear?how?long?patient?has?had?fatigue?and?is?not?a?great?historian?about?this . Nevertheless,?given?patient's?complains?and?history?of?other?issues?including palpitations?and dizziness will?start?treatment?and?refer?patient?to?infectious?disease. Orders: Referrals Infectious Disease Referral R53.83 - Other fatigue, R76.8 - Other specified abnormal immunological findings in serum Medications: New doxycycline hyclate 100 mg PO BID 56 tabs 0RF 28 days
== END 2025-02-16 17:05 | disposition home or self-care (01) ==
LOC: HO.HMCFM 15:15
PROVIDERS: PCP Family Medicine; Visit Provider Family Medicine
DX: R53.83 Other fatigue (principal)

== ENCOUNTER → 2025-02-16 15:15 | Outpatient (BNVA) | payer MEDICARE, MEDICAID, SELFPAY | PROVIDERS: PCP Family Medicine; Visit Provider Family Medicine ==

== ENCOUNTER → 2025-02-26 15:12 | Outpatient (REF) | payer MEDICARE, MEDICAID, SELFPAY ==
--- OUTSIDE RECORDS SUMMARY | 2025-02-26 15:17 | XMS_ITS | Encounter Summary ---
Author Organization [facility] Address [address] [place] [address] Phone Care Team Providers Care Cash Grain Farmer Name Role Phone Provider, Pola DE LEON Primary Care Provider [phone] Encounter Details Date Type Department Care Team (Late st Contact Info) Description 03/11/2010 Documentation [facility] [place] [address] [place] [address] Family Medicine, Physician [address] [place], [place] [address] Social History Tobacco Use Types Packs/Day Years [...] on filedocumented in this encounter Care Teams Cash Grain Farmer Relationship Specialty Start Date End Date Provider, MD Pola [address] [place] [address] PCP - General Pediatrics 05/12/22 08/16/24 documented as of this encounter
--- OUTSIDE RECORDS SUMMARY | 2025-02-26 15:17 | XMS_ITS | Clinical Summary ---
Author Organization [facility] Address [address] [place] [address] Phone Care Team Providers Care Manager Fixed Income Name Role Phone Unavailable Primary Care Provider [...] Vaccines Completed 07/21/2019, 07/20/20 18 Insurance NON [facility] NON PCC
--- OUTSIDE RECORDS SUMMARY | 2025-02-26 15:17 | XMS_ITS | Clinical Summary ---
Author Organization [facility] ity Address [address] [place] [address] Care Team Providers Care Oracle Manufacturing Consultant Name Role Phone Unavailable Primary Care Provider [...]
--- OUTSIDE RECORDS SUMMARY | 2025-02-26 15:17 | XMS_ITS | Encounter Summary ---
Author Organization [facility] Address [address] [place] [address] Phone Care Team Providers Care Night Order Selector Name Role Phone Provider, Pola DE LEON Primary Care Provider [phone] Encounter Details Date Type Department Care Team (Late st Contact Info) Description 06/03/2017 Conversion Encounter [facility] - [address] [address] Social History Tobacco Use Types Packs/Day Years [...] on filedocumented in this encounter Care Teams Night Order Selector Relationship Specialty Start Date End Date Provider, MD Pola [address] [place] [address] PCP - General Pediatrics 05/12/22 08/16/24 documented as of this encounter
--- OUTSIDE RECORDS SUMMARY | 2025-02-26 15:17 | XMS_ITS | Encounter Summary ---
Author Organization [facility] Address [address] [place] [address] Phone Care Team Providers Care B2B Appointment Setter Name Role Phone Provider, Pola DE LEON Primary Care Provider [phone] Encounter Details Date Type Department Care Team (Late st Contact Info) Description 05/12/2010 Documentation [facility] [place] Family Medicine [address] [place] [address] Family Medicine, Physician [address] [place], [place] [address] Social History Tobacco Use Types Packs/Day Years [...] on filedocumented in this encounter Care Teams B2B Appointment Setter Relationship Specialty Start Date End Date Provider, MD Pola [address] [place] [address] PCP - General Pediatrics 05/12/22 08/16/24 documented as of this encounter
--- OUTSIDE RECORDS SUMMARY | 2025-02-26 15:17 | XMS_ITS | Encounter Summary ---
Author Organization [facility] Address [address] [place] [address] Phone Care Team Providers Care Postal Mail Carrier Name Role Phone Provider, Pola DE LEON Primary Care Provider [phone] Encounter Details Date Type Department Care Team (Late st Contact Info) Description 01/06/2010 Documentation [facility] [place] Family Medicine [address] [place] [address] Family Medicine, Physician [address] [place], [place] [address] Social History Tobacco Use Types Packs/Day Years [...] on filedocumented in this encounter Care Teams Postal Mail Carrier Relationship Specialty Start Date End Date Provider, MD Pola [address] [place] [address] PCP - General Pediatrics 05/12/22 08/16/24 documented as of this encounter
--- OUTSIDE RECORDS SUMMARY | 2025-02-26 15:17 | XMS_ITS | Data Portability ---
Author Organization [facility], [address] Address [address] [place] [address] Assessment No assessment recorded. Plan of Treatment Reminders Order Date Submit Date Provider Last Modified By Organization Details Last Modified Time Details Appointments None recorded. Lab None recorded. Referral orthopedic surgeon referral 2022 023 [email or web address] [facility], [address], [place], [address], 16:55:19 Procedures None recorded. Surgeries None recorded. [...] Limited extension of the elbow. 2022 023 [email or web address], [address] [place] [address], [place], [address], 14:51:31 Medication Orders ibuprofen 600 mg tablet 2022 023 [facility], [address] [facility], [place], [address], 14:14:35 Patient TargetsNo targets recorded. Patient Instructions Encounter Date Encounter Id Patient Instructions Last Modified By Organization Details Last Modified Time 01/30/2023 [id number] elbow sprain: care instructions [email or web address] Not available 01/30/2023 14:14:24 elbow bursitis: exercises Not available 01/30/2023 14:14:24 Reason for Referral Orthopedic Surgeon Referral for Fracture of distal end of humerus Referring Physician: Xiao Drake, Urgent Care, Encounter Date: 01/30/2023 Results Created Date Observation Date Name Description Value Unit Range Abnormal Flag Note LastModifiedBy Organization Detail LastModifiedTime 01/31/20 23 01/30/2023 XR, elbow , 3 or more view No observ ation record ed. [email or web address] [facility] [address] [place], [address], 01/30/2023 15:29:09 Result Notes None recorded. 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 Procedures Surgical History None recorded. Imaging Results Imaging Date Name Status LastModified by Organiz ation Details LastModified Time 01/30/2023 XR, elbow, 3 or more view completed [email or web address] [facility] [address] [place], [address], 01/30/2023 15:29:09 Procedure Notes None recorded. Medical [...] Last Updated DateTime 190.5 cm 21.2 kg/m2 59388.7 g 97.8 [degF] 18 /min 82 /min 100 % 100 % 110 mm[Hg] 63 mm[Hg] PIPO Kraus PA - [facility] 13:23:31 Social History Question Answer Notes LastModified by [employer] Details LastModified Time Tobacco Smoking Status Never Smoker PIPO lakhani PA - [facility] 01/30/2023 13:22:12 What Is Your Water Source? City Information not available 01/30/2023 What Is Your Heat Source? Other Information not available 01/30/2023 Have You Had Direct Contact, Or Contact During Intimacy, With Monkeypox Rash, Scabs, Or Body Fluids From A Person With Monkeypox? No Information not available 01/30/2023 Have You Recently Traveled Abroad? No Information not available 01/30/2023 Sex: Unknown Functional Status Question Answer Note LastModified by [employer] Details LastModified Time Do you use any illicit or recreational drugs? No Information not available 01/30/2023 Do you or have you ever used any other forms of tobacco or nicotine? No Information not available 01/30/2023 What is your level of alcohol consumption? None Information not available 01/30/2023 Mental Status None recorded. Family History Relationship [...] SNOMED-CT Code Diagnosis ICD10 Code Diagnosis Note [id number] [facility] [address] [address] 02/09/2019 10:41:33 02/09/2019 11:32:01 [id number] 2099_[facility] [address] [address] 11/18/2016 17:05:51 11/18/2016 18:09:[id number] [place] [address] [address] [address] 05/22/2016 18:31:22 05/22/2016 19:27:[id number] [place] [address] [address] [address] 09/06/2021 14:10:40 09/06/2021 16:18:[id number] [place] [address] [place] [address] 06/03/2017 14:35:22 06/03/2017 15:24:58 [id number] DAMARIS KIDD [facility] [address] [place] [address] 01/30/2023 12:42:42 01/30/2023 14:24:56 Contusion of right elbow [id number] S50.01XA X-ray shows some effusion in the [...] Fracture o f distal end of humerus 429237489 S42.401A Will need to see orthopedis t [...] Recorded Advance Directives Directive None Recorded Payers Insurance Date Sequence Insurance Name Policy Number Policy Beatty Covered Member ID Beatty Member ID Guarantor Name 01/30/2023 1 [facility] [employer] [facility] TOGETHER WITH [facility] (MEDICAID HMO) [id number] Nash Grey [id number] Nash Grey 01/30/2023 1 MEDICARE B-[place]: [employer] Nash Grey [id number] Nash Grey 01/30/2023 2 [place] [facility] Nash Grey [id number] Nash Grey Notes Date Note Type Note [...] or clavicle pain. no LOC. DAMARIS KIDD [facility] [place], [address], [place] - [facility] 01/30/2023 15:33:47
--- OUTSIDE RECORDS SUMMARY | 2025-02-26 15:17 | XMS_ITS | Encounter Summary ---
Author Organization [facility] Address [address] [place] [address] Phone Care Team Providers Care Auto Radiator Specialist Name Role Phone Provider, Pola DE LEON Primary Care Provider [phone] Encounter Details Date Type Department Care Team (Late st Contact Info) Description 03/06/2018 [facility]counter [facility] [address] [address] Cyndy Good MD [address] [place] [address] Social History Tobacco Use Types Packs/Day Years [...] on filedocumented in this encounter Care Teams Auto Radiator Specialist Relationship Specialty Start Date End Date Provider, MD Pola [address] [place] [address] PCP - General Pediatrics 05/12/22 08/16/24 documented as of this encounter
== END ==
LOC: HO.CARD 15:12
PROVIDERS: PCP Family Medicine; Visit Provider Family Medicine
DX: R00.2 Palpitations (principal)
CPT/HCPCS: 93225

== ENCOUNTER 2025-03-02 15:41 | Outpatient (AMB) | payer MEDICARE, MEDICAID, SELFPAY ==
--- OUTSIDE RECORDS SUMMARY | 2025-03-02 15:46 | XMS_ITS | Encounter Summary ---
Author Organization [facility] Address [address] [place] [address] Phone Care Team Providers Care Product Handler Name Role Phone Provider, Pola DE LEON Primary Care Provider [phone] Encounter Details Date Type Department Care Team (Late st Contact Info) Description 03/06/2018 [facility]counter [facility] [address] [address] Cyndy Good MD [address] [place] [address] Social History Tobacco Use Types Packs/Day Years [...] on filedocumented in this encounter Care Teams Product Handler Relationship Specialty Start Date End Date Provider, MD Pola [address] [place] [address] PCP - General Pediatrics 05/12/22 08/16/24 documented as of this encounter
--- OUTSIDE RECORDS SUMMARY | 2025-03-02 15:46 | XMS_ITS | Encounter Summary ---
Author Organization [facility] Address [address] [place] [address] Phone Care Team Providers Care Wood Window And Door Craftsman Name Role Phone Provider, Pola DE LEON Primary Care Provider [phone] Encounter Details Date Type Department Care Team (Late st Contact Info) Description 03/11/2010 Documentation [facility] [place] Family Medicine [address] [place] [address] Family Medicine, Physician [address] [place], [place] [address] Social History Tobacco Use Types Packs/Day Years [...] on filedocumented in this encounter Care Teams Wood Window And Door Craftsman Relationship Specialty Start Date End Date Provider, MD Pola [address] [place] [address] PCP - General Pediatrics 05/12/22 08/16/24 documented as of this encounter
--- OUTSIDE RECORDS SUMMARY | 2025-03-02 15:46 | XMS_ITS | Data Portability ---
Author Organization [facility], [address] Address [address] [place] [address] Assessment No assessment recorded. Plan of Treatment Reminders Order Date Submit Date Provider Last Modified By Organization Details Last Modified Time Details Appointments None recorded. Lab None recorded. Referral orthopedic surgeon referral 2022 023 [email or web address] [facility], [address], [place], [address], 16:55:19 Procedures None recorded. Surgeries None recorded. [...] Limited extension of the elbow. 2022 023 [facility], [address] [place] [address], [place], [address], 14:51:31 Medication Orders ibuprofen 600 mg tablet 2022 023 [facility], [address] [facility], [place], [address], 14:14:35 Patient TargetsNo targets recorded. Patient Instructions Encounter Date Encounter Id Patient Instructions Last Modified By Organization Details Last Modified Time 01/30/2023 [id number] elbow sprain: care instructions [email or web address] Not available 01/30/2023 14:14:24 elbow bursitis: exercises [email or web address] Not available 01/30/2023 14:14:24 Reason for Referral Orthopedic Surgeon Referral for Fracture of distal end of humerus Referring Physician: Xiao Drake, Urgent Care, Encounter Date: 01/30/2023 Results Created Date Observation Date Name Description Value Unit Range Abnormal Flag Note LastModifiedBy Organization Detail LastModifiedTime 01/31/20 23 01/30/2023 XR, elbow , 3 or more view No observ ation record ed. [facility] [address] [place], [address], 01/30/2023 15:29:09 Result Notes None recorded. Problems Name Problem SNOMED Code Status Onset Date Resolution Date Notes Provider Name and Address Organization Details Recorded Time Anxiety 03664909 Active 2022 IRIS COUVERTIE R null, PA - [facility] 3 13:21:56 Attention deficit hyperactivity disorder, predominantly inattentive type 66237475 Active 2022 IRIS COUVERTIE R null, PA - [facility] 3 13:22:01 Problem Notes None recorded. Procedures Surgical History None recorded. Imaging Results Imaging Date Name Status LastModified by Organiz ation Details LastModified Time 01/30/2023 XR, elbow, 3 or more view completed [email or web address] [facility] [address] [place], [address], 01/30/2023 15:29:09 Procedure Notes None recorded. Medical [...] Last Updated DateTime 190.5 cm 21.2 kg/m2 41800.7 g 97.8 [degF] 18 /min 82 /min 100 % 100 % 110 mm[Hg] 63 mm[Hg] PIPO Kraus PA - [facility] 13:23:31 Social History Question Answer Notes LastModified by [employer] Details LastModified Time Tobacco Smoking Status Never [...] Functional Status Question Answer Note LastModified by [employer] Details LastModified Time Do you use any [...] SNOMED-CT Code Diagnosis ICD10 Code Diagnosis Note [id number] [facility] [address] [address] 02/09/2019 10:41:33 02/09/2019 11:32:01 [id number] 2099_[facility] [address] [address] 11/18/2016 17:05:51 11/18/2016 18:09:[id number] [place] [address] [address] [address] 05/22/2016 18:31:22 05/22/2016 19:27:[id number] [place] [address] [address] [address] 09/06/2021 14:10:40 09/06/2021 16:18:[id number] [place] [address] [place] [address] 06/03/2017 14:35:22 06/03/2017 15:24:58 [id number] DAMARIS KIDD [facility] [address] [place] [address] 01/30/2023 12:42:42 01/30/2023 14:24:56 Contusion of right elbow [id number] [id number] S50.01XA X-ray shows some effusion in the [...] Fracture o f distal end of humerus 515328990 S42.401A Will need to see orthopedis t [...] Beatty Member ID Guarantor Name 01/30/2023 1 [facility] [employer] [facility] TOGETHER WITH [facility] (MEDICAID HMO) [id number] Nash Grey [id number] Nash Grey 01/30/2023 1 MEDICARE B-[place]: [employer] Nash Grey [id number] Nash Grey 01/30/2023 2 [place]: [facility] Nash Grey [id number] Nash Grey Notes Date Note Type Note [...] or clavicle pain. no LOC. DAMARIS KIDD [facility] [place], [address], [place] - [facility] 01/30/2023 15:33:47
--- OUTSIDE RECORDS SUMMARY | 2025-03-02 15:46 | XMS_ITS | Encounter Summary ---
Author Organization [facility] Address [address] [place] [phone] Phone Care Team Providers Care Production Control Clerk Name Role Phone Provider, Pola DE LEON Primary Care Provider [phone] Encounter Details Date Type Department Care Team (Late st Contact Info) Description 06/03/2017 Conversion Encounter [facility] - [address] [address] Social History Tobacco Use Types Packs/Day Years [...] on filedocumented in this encounter Care Teams Production Control Clerk Relationship Specialty Start Date End Date Provider, MD Pola [address] [place] [address] PCP - General Pediatrics 05/12/22 08/16/24 documented as of this encounter
--- OUTSIDE RECORDS SUMMARY | 2025-03-02 15:46 | XMS_ITS | Clinical Summary ---
Author Organization [facility] Address [address] [place] [address] Phone Care Team Providers Care Disability Advocate Name Role Phone Unavailable Primary Care Provider [...] Vaccines Completed 07/21/2019, 07/20/20 18 Insurance NON [facility] NON PCC
--- OUTSIDE RECORDS SUMMARY | 2025-03-02 15:46 | XMS_ITS | Clinical Summary ---
Author Organization [facility] ity Address [address] [place] [address] Care Team Providers Care Stitch Cleaner Name Role Phone Unavailable Primary Care Provider [...]
--- OUTSIDE RECORDS SUMMARY | 2025-03-02 15:46 | XMS_ITS | Encounter Summary ---
Author Organization [facility] Address [address] [place] [address] Phone Care Team Providers Care Procurement Cost Coordinator Name Role Phone Provider, Pola DE LEON Primary Care Provider [phone] Encounter Details Date Type Department Care Team (Late st Contact Info) Description 05/12/2010 Documentation [facility] [facility] [address] [place] [address] Family Medicine, Physician [address] [place], [place] [id number] Social History Tobacco Use Types Packs/Day Years [...] on filedocumented in this encounter Care Teams Procurement Cost Coordinator Relationship Specialty Start Date End Date Provider, MD Pola [address] [place] [phone] PCP - General Pediatrics 05/12/22 08/16/24 documented as of this encounter
--- OUTSIDE RECORDS SUMMARY | 2025-03-02 15:46 | XMS_ITS | Encounter Summary ---
Author Organization [facility] Address [address] [place] [address] Phone Care Team Providers Care Balance Staff Inspector Name Role Phone Provider, Pola DE LEON Primary Care Provider [phone] Encounter Details Date Type Department Care Team (Late st Contact Info) Description 01/06/2010 Documentation [facility] [place] [address] [place] [address] Family Medicine, Physician [address] [place], [place] [id number] Social History Tobacco Use Types Packs/Day Years [...] on filedocumented in this encounter Care Teams Balance Staff Inspector Relationship Specialty Start Date End Date Provider, MD Pola [address] [place] [address] PCP - General Pediatrics 05/12/22 08/16/24 documented as of this encounter
[2025-03-02 15:54] VITALS: PULSE 90; O2SAT 98
--- NOTE | 2025-03-02 15:54 | A.OFFVIS_ITS ---
Vital Signs 03/02/25 15:54 Height 6 ft 3 in Pulse 90 Pulse Source Pulse Oximeter Pulse Oximetry (%) 98 Oxygen Delivery Method Room Air Intake Visit Reasons: abnormal immunological findings Allergies guaifenesin Allergy (Mild, Verified 03/02/25 15:54) ticks HPI Comments Details: He is here with mother. He has Aspergers according to mother and she was very upset when I asked to see him by himself and she said I was a terrible person and very rude . I dont see this diagnosis reported in record,Tourettes and ADHD. Patient has good vocabulary and answers questions appropriately. He has apparently fatigue over last two months and as part of testing Lyme 02/13 shows Lyme IgM negative and IgG 02/24 bands positive. He had a rash on ankle over a year ago and had received some antibiotics. He has no meningitis,no heart block,no joint swelling and no neuropathic pain. He has no fever or chills. He has no foreign travel and no ill pets. [facility] Medical History Tourettes syndrome Surgical History No pertinent past surgical history Family History Other FH: mental illness Social History Housing: House Alcohol intake: never Patient Tobacco Use Status: Never used Tobacco e-Cigarette/Vaping Use: Never Used Second Hand Smoke Exposure: No service: No Current occupational exposures/hazards: No Cognitive needs: No Hearing needs: No Vision needs: No Review of Systems Const All systems reviewed & are unremarkable except as noted in HPI and below Physical Exam Vital Signs: Last Vital Signs Pulse 90 03/02/25 15:54 Pulse Ox 98 03/02/25 15:54 Oxygen Delivery Method Room Air 03/02/25 15:54 Const General: cooperative Orientation/consciousness: patient oriented x3 HEENT Head: Yes normal to inspection Mouth: Normal oral and palatal mucosa present Eyes General: appearance normal, both eyes and all related structures Pupils: Equal, round and reactive pupils present Resp Effort & Inspection: normal respiratory effort Cardio Rate: regular rate Rhythm: regular rhythm GI Palpation (GI): Soft to palpation and nontender General: Yes no CVA tenderness Back/Spine/Pelvis Back: no CVA tenderness Skin General skin exam: no rashes or lesions noted Neuro General: patient oriented x3 Cranial nerves: Yes CN's II-XII intact bilaterally and Yes Equal, round and reactive pupils present Extrem General: Yes normal to inspection Psych Appearance: grossly normal Assessment & Plan Assessment & Plan (1) Borderline results on serologic testing for Lyme disease: Comment: He may have had Lyme disease in past with ankle rash or asymptomatic conversion Either way Lyme testing and treatment not useful for diagnosis and treatment of fatigue Code(s): R76.8 - Other specified abnormal immunological findings in serum Category: Medical Plan: No further treatment at this time. His mother says he is seeing instructor correspondence school for evaluation of Lyme pericarditis but doesnt have symptoms of cardiac disease at this time,early repolarization on EKG. If this is found per Cardiology then 4 weeks IV Ceftriaxone. Coding Level of Care Code New Pt Level 3 (60898) Diagnoses Borderline results on serologic testing for Lyme disease R76.8
== END 2025-03-02 16:27 | disposition home or self-care (01) ==
LOC: HO.HID 15:41
PROVIDERS: PCP Family Medicine; Visit Provider Internal Medicine
DX: R76.8 Other specified abnormal immunological findings in serum (principal)
CPT/HCPCS: 99203

== ENCOUNTER → 2025-03-02 15:41 | Outpatient (BNVA) | payer MEDICARE, MEDICAID, SELFPAY | PROVIDERS: PCP Family Medicine; Visit Provider Internal Medicine | DX: R76.8 Other specified abnormal immunological findings in serum (principal) | CPT/HCPCS: 99202 ==

== ENCOUNTER 2025-05-02 14:49 | Outpatient (AMB) | payer MEDICARE, MEDICAID, SELFPAY ==
--- NOTE | 2025-05-02 14:53 | MHC.OFFVIS ---
Vital Signs 05/02/25 14:56 Height 6 ft 3 in Weight 189 lb BMI 23.6 BP 105/51 L Blood Pressure Location Lt brachial Position Sitting Pulse 82 Pulse Oximetry (%) 98 Oxygen Delivery Method Room Air Intake Visit Reasons: gas and abd pain Intake Note: Patient new consult for gas, and abdominal pain. Patient cc: abdominal pain on and off, gas and loud burping. Computer Forensic Specialist Required: No Accompanied by: Mother Allergies guaifenesin Allergy (Mild, Verified 03/02/25 15:54) ticks HPI HPI gas and abd pain: Details: 24-year-old male with past medical history of an anxiety, ADD, Lyme disease is here today for initial consultation. Patient is accompanied by his mom. Patient reports frequent abdominal bloating epigastric pain. Patient is currently taking omeprazole and states that he continues to feel bloated and have acid reflux and epigastric pain. Patient reports frequent belching. Patient's mom states that sometimes he will belch many times in the role and very loud. Patient denies any nausea or vomiting. Patient reports that he has a good appetite. Patient denies any dyspepsia, dysphagia or odynophagia. Denies any melena, hematochezia, unintentional weight loss or ribbon like stools. Patient denies any other GI concerning symptoms [facility] Medical History Tourettes syndrome Surgical History No pertinent past surgical history Family History Other FH: mental illness Social History Housing: House Alcohol intake: never Patient Tobacco Use Status: Never used Tobacco e-Cigarette/Vaping Use: Never Used Second Hand Smoke Exposure: No service: No Current occupational exposures/hazards: No Cognitive needs: No Hearing needs: No Vision needs: No Review of Systems Const Denies weight gain and Denies weight loss ENT Reports no additional complaints, Denies dysphagia and Denies odynophagia Card Reports no additional complaints Resp Reports no additional complaints GI Denies abdominal pain, Reports belching, Denies melena, Reports bloating, Denies change in bowel habits, Denies dysphagia, Denies excessive flatus, Reports dyspepsia, Reports heartburn, Denies diarrhea, Reports loose stools, Denies nausea, Denies odynophagia and Denies vomiting Reports no additional complaints Musc Reports no additional complaints Neuro Reports no additional complaints Psych Reports no additional complaints Endo Reports no additional complaints Physical Exam Vital Signs: Last Vital Signs Pulse 82 05/02/25 14:56 BP 105/51 L 05/02/25 14:56 Pulse Ox 98 05/02/25 14:56 Oxygen Delivery Method Room Air 05/02/25 14:56 BMI result Body Mass Index 23.6 Const General: healthy appearing, no acute distress and well developed Nutritional Appearance: well nourished Orientation/consciousness: patient oriented x3 Resp Effort & Inspection: normal respiratory effort, able to speak in complete sentences, no tracheal deviation and symmetric chest movement Auscultation: clear to auscultation bilaterally Cardio Rate: regular rate GI Inspection: Yes normal to inspection and No distended Palpation (GI): Soft to palpation, not firm, nontender and No hepatosplenomegaly present Auscultation: normal bowel sounds General: Yes no CVA tenderness Back/Spine/Pelvis Back: no CVA tenderness Skin General skin exam: elasticity normal, turgor normal and dry skin Neuro General: patient oriented x3 Psych Appearance: grossly normal Mental Status: mental status grossly normal Assessment & Plan Assessment & Plan (1) Postprandial abdominal bloating: Code(s): R14.0 - Abdominal distension (gaseous) (2) Flatulence/gas pain/belching: Code(s): R14.0 - Abdominal distension (gaseous) (3) Postprandial epigastric pain: Code(s): R10.13 - Epigastric pain (4) Postprandial diarrhea: Code(s): K52.9 - Noninfective gastroenteritis and colitis, unspecified Plan Patient will stop omeprazole and start taking pantoprazole. Will check fecal calprotectin, H pylori, CRP, transglutaminase, vitamin B12, folate vitamin-D level. Patient was encouraged to change his diet. Avoid dietary triggers late night snacking. Staying upright for minimal 3 hours after meals discussed with patient. Patient will follow FODMAP diet. List of food recommended as well as list of food to avoid given to patient. Patient will follow-up in 3 months, sooner on as needed basis. Both patient and his mom are agreeable to plan of care and verbalizes understanding of instructions. He was given the opportunity to ask questions and all questions answered. Thank you for allowing me to participate in his care Orders: Orders Calprotectin, Fecal 05/02/25 R15.9 - Full incontinence of feces Vitamin B12 and Folate 05/02/25 R19.7 - Diarrhea, unspecified Vitamin D 25-OH (D2 and D3) 05/02/25 E55.9 - Vitamin D deficiency, unspecified [place] upper GI w Ba Swallow 05/02/25 K21.9 - Gastro-esophageal reflux disease without esophagitis H pylori Ag Stool 05/02/25 K21.9 - Gastro-esophageal reflux disease without esophagitis C Reactive Protein 05/02/25 K58.9 - Irritable bowel syndrome, unspecified Transglutaminase IgA 05/02/25 R10.9 - Unspecified abdominal pain Medications: New pantoprazole take one tablet half an hour before breakfast 40 mg PO DAILY 30 tabs 3RF K21.9 - Gastro-esophageal reflux disease without esophagitis Discontinued omeprazole Discontinued Reason: Doctor's Order 20 mg PO DAILY 30 days 30 caps 0RF Coding Level of Care Code New Pt Level 4 (26442) Diagnoses Postprandial abdominal bloating R14.0 Flatulence/gas pain/belching R14.0 Postprandial epigastric pain R10.13 Postprandial diarrhea K52.9 Time Spent (min) 50 Comment 35 minutes spent with patient and additional 15 minutes spent reviewing his record
[2025-05-02 14:56] VITALS: BP 105/51; PULSE 82; O2SAT 98; BMI 23.6
--- OUTSIDE RECORDS SUMMARY | 2025-05-02 15:21 | XMS_ITS | Clinical Summary ---
Author Organization [facility] ity Address [address] [place] [address] Care Team Providers Care Knife Finisher Name Role Phone Unavailable Primary Care Provider [...] 2023-2 5 season) 2024 Influenza Vaccine (#1) 2025 HIB Vaccines Aged Out No longer [...] 5 Years) and At-Risk Patients (6 to 49 Years) Aged Out No longer eligible b ased on patient's age to complete this topic RSV Immunization Patients Un francis 20 months Aged Out No longer eligible b ased on patient's age to complete this topic Varicella Vaccines Aged Out No longer eligible based on patient's age to complete this topic
--- OUTSIDE RECORDS SUMMARY | 2025-05-02 15:21 | XMS_ITS | Data Portability ---
Author Organization [facility] [address] Address [address] [place] [address] Assessment No assessment recorded. Plan of Treatment Reminders Order Date Submit Date Provider Last Modified By Organization Details Last Modified Time Details Appointments None recorded. Lab None recorded. Referral orthopedic surgeon referral 2022 023 [email or web address] [facility], [address], [place], [address], 16:55:19 Procedures None recorded. Surgeries None recorded. [...] Limited extension of the elbow. 2022 023 [facility], [address] [place] [address], [address], 14:51:31 Medication Orders ibuprofen 600 mg tablet 2022 023 [id number], [address] [facility], [place], [address], 14:14:35 Patient TargetsNo targets recorded. Patient Instructions Encounter Date Encounter Id Patient Instructions Last Modified By Organization Details Last Modified Time 01/30/2023 [id number] elbow sprain: care instructions [email or web address] Not available 01/30/2023 14:14:24 elbow bursitis: exercises [email or web address] Not available 01/30/2023 14:14:24 Reason for Referral Orthopedic Surgeon Referral for Fracture of distal end of humerus Referring Physician: Xiao Drake, Urgent Care, Encounter Date: 01/30/2023 Results Created Date Observation Date Name Description Value Unit Range Abnormal Flag Note LastModifiedBy Organization Detail LastModifiedTime 01/31/20 23 01/30/2023 XR, elbow , 3 or more view No observ ation record ed. [email or web address] [facility] [address] [place], [address], 01/30/2023 15:29:09 Result Notes None recorded. 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 Medical Equipment None Reported. [...] in Arterial blood by Pulse oximetry Systolic And Diastolic Provider Name and Address Organization Details Last Updated DateTime 190.5 cm 21.2 kg/m2 42997.7 g 97.8 [degF] 18 /min 82 /min 100 % 100 % 110/63 mm[Hg] PIPO PUGA Efra [place] - [facility] 13:23:31 Social History Question Answer Notes LastModified by [employer] Details LastModified Time Tobacco Smoking Status Never Smoker PIPO ANTOLINLINNEA lakhani [place] - [facility] 01/30/2023 13:22:12 [...] Functional Status Question Answer Note LastModified by [employer] Details LastModified Time Do you use any [...] SNOMED-CT Code Diagnosis ICD10 Code Diagnosis Note [id number] [facility] [address] [address] [place] [phone] 02/09/2019 10:41:33 02/09/2019 11:32:[id number] [place] [address] [address] [address] [place] [address] 11/18/2016 17:05:51 11/18/2016 18:09:[id number] [place] [address] [address] [address] [place] [phone] 05/22/2016 18:31:22 05/22/2016 19:27:[id number] [place] [address] [address] 09/06/2021 14:10:40 09/06/2021 16:18:[id number] [place] [address] [phone] 06/03/2017 14:35:22 06/03/2017 15:24:58 [id number] DAMAR[facility] KIDD [address] [address] 01/30/2023 12:42:42 01/30/2023 14:24:56 Contusion of right elbow [id number] S50.01XA X-ray shows some effusion in the [...] Fracture o f distal end of humerus [id number] S42.401A Will need to see orthopedis t [...] Beatty Member ID Guarantor Name 01/30/2023 1 [facility] [employer] [facility] TOGETHER WITH [facility] (MEDICAID HMO) [id number] Nash Sunnett [id number] Nash Grey 01/30/2023 1 MEDICARE B-[place]: [employer] Nashrigo Grey [id number] Nash Grey 01/30/2023 2 [place] [facility] Nash Matilda [id number] Nash Grey Notes Date Note Type Note [...] clavicle pain. no LOC. DAMARIS KIDD [address] [place], [address], [place] - [facility] 01/30/2023 15:33:47
--- OUTSIDE RECORDS SUMMARY | 2025-05-02 15:21 | XMS_ITS | Encounter Summary ---
Author Organization [facility] Address [address] [place] [address] Phone Care Team Providers Care Manager Case Name Role Phone Provider, Pola DE LEON Primary Care Provider [phone] Encounter Details Date Type Department Care Team (Late st Contact Info) Description 01/06/2010 Documentation [facility] [place] [address] [place] [address] Family Medicine, Physician [address] [place], [place] [address] Social History Tobacco Use Types Packs/Day Years [...] on filedocumented in this encounter Care Teams Manager Case Relationship Specialty Start Date End Date Provider, MD Pola [address] [place] [address] PCP - General Pediatrics 05/12/22 08/16/24 documented as of this encounter
== END 2025-05-02 15:27 | disposition home or self-care (01) ==
LOC: HO.HGI 14:50
PROVIDERS: PCP Family Medicine; Visit Provider Nurse Practitioner Family
DX: R14.0 Abdominal distension (gaseous) (principal); R10.13 Epigastric pain; K52.9 Noninfective gastroenteritis and colitis, unspecified
CPT/HCPCS: 99204

== ENCOUNTER 2025-05-02 14:49 | Outpatient (REF) | payer MEDICARE, MEDICAID, SELFPAY ==
[2025-05-02 15:50] LABS: MANUAL DIFF FLAG NO
[2025-05-02 16:12] LABS: Hematocrit 40.3 % (42.0-52.0); Hemoglobin 13.8 g/dl (14.0-18.0); Imm Gran Abs Auto 0.01 X10*3/uL (0.00-0.03); Imm Gran Pct Auto 0.2 % (0.0-0.4); Lymphocytes Absolute Auto 1.2 X10*3/uL (1.2-4.9); Mean Corpuscular HGB Conc 34.2 g/dl (31.0-36.0); Mean Corpuscular Hemoglobin 30.3 pg (27.0-33.0); Mean Corpuscular Volume 88.4 fL (80.0-98.0); NRBC Abs Auto 0.000 X10*3/uL (0.0-0.012); NRBC Pct Auto 0.0 /100WBC (0.0-0.2); Platelet Count 177 X10*3/uL (160-400); Red Blood Count 4.56 X10*6/uL (4.60-5.80); White Blood Count 5.9 X10*3/uL (4.8-10.8)
[2025-05-02 16:52] LABS: Alanine Aminotransferase 25 U/L (0-40); Albumin Level 4.9 g/dL (3.5-5.0); Alkaline Phosphatase 57 U/L (39-117); Anion Gap 9 (12-20); Aspartate Amino Transferase 33 U/L (5-37); Blood Urea Nitrogen 11 mg/dL (9-16); Calcium 9.5 mg/dL (8.4-10.2); Carbon Dioxide 30 mmol/L (22-29); Chloride 104 mmol/L (96-108); Cholesterol 152 mg/dL (<200); Estimated Glomerular Filt Rate > 60; HDL Cholesterol 48 mg/dL (>40); Iron 103 mcg/dL (45-160); Percent Iron Saturation 35 % (15-50); Potassium 4.1 mmol/L (3.3-5.1); Sodium 139 mmol/L (135-145); Total Iron Binding Capacity 293 mcg/dL (228-428); Total Protein 6.9 g/dL (6.5-8.0); Triglycerides 77 mg/dL (<150); Unsaturated Iron Binding 190 ug/dL
[2025-05-02 17:22] LABS: Folate 13.3 ng/mL (> or = 4.0); Vitamin B12 1121 pg/mL (200-900)
[2025-05-03 07:03] LABS: Lyme Blot 2.19 index
[2025-05-06 13:08] LABS: Vitamin D 25-OH, D2 <4 ng/mL; Vitamin D 25-OH, D3 29 ng/mL; Vitamin D 25-OH, Total 29 ng/mL (30-100)
[2025-05-08 10:56] LABS: Lyme Abs Screen POSITIVE
[2025-05-09 21:18] LABS: 39KD (IgG) Band REACTIVE; 41KD (IgG) Band REACTIVE; Lyme IgG Blot Interp POSITIVE (NEGATIVE); Lyme IgM Blot Interp NEGATIVE (NEGATIVE)
== END 2025-05-02 14:50 | disposition home or self-care (01) ==
LOC: HO.LAB 14:49
PROVIDERS: Physician Assistant; PCP Family Medicine; Visit Provider Nurse Practitioner Family
DX: Z00.00 Encounter for general adult medical examination without abnormal findings (principal); R53.83 Other fatigue; F41.9 Anxiety disorder, unspecified; F98.8 Other specified behavioral and emotional disorders with onset usually occurring in childhood and adolescence; R19.7 Diarrhea, unspecified; K58.9 Irritable bowel syndrome, unspecified; E55.9 Vitamin D deficiency, unspecified; R10.9 Unspecified abdominal pain; K21.9 Gastro-esophageal reflux disease without esophagitis; R10.13 Epigastric pain; R14.0 Abdominal distension (gaseous)
CPT/HCPCS: 36415; 80053; 80061; 82306; 82607; 82746; 83540; 84443; 85025; 86140; 86308; 86364; 86617; 86618; 99202

== ENCOUNTER 2025-05-17 13:21 | Outpatient (AMB) | payer MEDICARE, MEDICAID, SELFPAY ==
--- NOTE | 2025-05-17 13:24 | A.OFFVIS_ITS ---
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 The palpitations began during the COVID-19 pandemic, around August 2021, when the patient contracted COVID-19. The patient reports that the palpitations are often triggered by the consumption of coffee, especially when combined with his previous medication, Concerta, which he has since discontinued. No other associated symptoms like shortness of breath or syncope. The patient has a history of anxiety, which may contribute to the perception of palpitations. He has experienced elevated D-dimer levels in the past, leading to a hospital visit due to concerns about potential blood clots, although no clots were found. The patient also reports symptoms consistent with gastroesophageal reflux disease (GERD), including frequent burping and acid reflux. [facility] Medical History Tourettes syndrome Surgical History No pertinent past surgical history Family History (Updated 05/17/25 @ 13:31 by Frida Bansal) Mother Diabetes High blood pressure Father Lyme disease Maternal Grandmother Atrial fibrillation and flutter Maternal Aunt Atrial fibrillation and flutter Irregular heart beat Other FH: mental illness Social History Housing: House Alcohol intake: never Patient Tobacco Use Status: Never used Tobacco e-Cigarette/Vaping Use: Never Used Second Hand Smoke Exposure: No service: No Current occupational exposures/hazards: No Cognitive needs: No Hearing needs: No Vision needs: No Review of Systems Const Denies weakness ENT Denies dizziness Card Denies chest pain, Denies chest pain with activity, Denies syncope, Denies rapid heart rate, Denies pedal edema, Denies edema, Denies leg edema, Denies lightheadedness, Reports palpitations, Denies dyspnea, Denies dyspnea on exertion and Denies orthopnea Resp Denies cough, Denies dyspnea and Denies dyspnea on exertion GI Denies hematochezia and Denies change in stool character Musc Denies abnormal gait, Reports muscle cramps, Denies muscle weakness, Denies numbness, Denies radiating pain into limb and Denies tingling Neuro Denies abnormal gait, Denies dizziness, Denies syncope, Denies numbness, Denies tingling and Denies weakness Endo Reports palpitations Physical Exam Vital Signs: Last Vital Signs Pulse 70 05/17/25 13:25 BP 118/60 05/17/25 13:25 BMI result Body Mass Index 23.7 Const General: comfortable and no acute distress Orientation/consciousness: patient oriented x3 HEENT Other: Unremarkable Head: Yes normal to inspection Neck Neck: Yes normal visual inspection Chest Chest palpation & inspection: normal inspection of the chest Resp Auscultation: clear to auscultation bilaterally Cardio Palpation: normal PMI Heart sounds: S1 normal heart sound present, S2 normal heart sound present, no gallops, no murmurs and no rubs GI Palpation (GI): Soft to palpation Back/Spine/Pelvis Other: unremarkable Skin General skin exam: no rashes or lesions noted Neuro General: patient oriented x3 Extrem General: Yes normal to inspection Psych Mental Status: mental status grossly normal Assessment & Plan Assessment & Plan (1) Palpitations: Code(s): R00.2 - Palpitations Category: Medical Plan EKG with underlying sinus rhythm at 62/Min; mild early repolarization type changes; normal MN and corrected QT. Holter 2022-underlying sinus rhythm with sinus tachycardia. Patient markers and symptoms of fast heartbeat correlate with sinus rhythm/sinus tachycardia. Holter-02/2025-sinus rhythm and patient markers correlate with sinus rhythm. The plan includes conducting a cardiac ultrasound to assess heart function and rule out any structural abnormalities. A longer-term heart monitor may be considered if the patient feels that previous monitoring did not capture all episodes of palpitations. The patient is advised to avoid caffeine, particularly in combination with any stimulant medications, to reduce the incidence of palpitations. Discussion Notes I discussed with the patient the likelihood that anxiety may be contributing to his perception of heart palpitations. We reviewed the results of previous heart monitoring, which did not show any significant abnormalities, and discussed the option of a longer-term monitor. I recommended a cardiac ultrasound to ensure there are no structural issues with the heart. We also discussed the importance of avoiding caffeine, especially in combination with stimulant medications, to help manage palpitations. Patient was informed and verbally consented to the use of an ambient scribe for clinic note documentation during this visit. Orders: Orders CA echo transthoracic complete Today Loi Saldivar MD R00.2 - Palpit ations ECG 14 day holter monitor Today Loi Saldivar MD R00.2 - Palpitations Medications: Changed From pantoprazole take one tablet half an hour before breakfast 40 mg PO DAILY 30 tabs 3RF K21.9 - Gastro-esophageal reflux disease without esophagitis To pantoprazole take one tablet half an hour before breakfast 40 mg PO DAILY PRN K21.9 - Gastro-esophageal reflux disease without esophagitis LIZZETTE Jerez- Coding Level of Care Code New Pt Level 3 (69580) Diagnoses Palpitations R00.2
[2025-05-17 13:25] VITALS: BP 118/60; PULSE 70; BMI 23.7
--- OUTSIDE RECORDS SUMMARY | 2025-05-17 13:35 | XMS_ITS | Clinical Summary ---
Author Organization [facility] ity Address [address] [place] [address] Care Team Providers Care Upsetting Machine Operator Name Role Phone Unavailable Primary Care Provider [...] of 3 - 19+ 3-dose series) 2020 HIV Screening 11/12/2023 Hepatitis C Screening 11/12/2023 Social Influencers of Health Screening 11/12/2023 COVID-19 Vaccine (1 - 2023-2 5 season) 2024 Depression Screening 10/18/2024 Influenza Vaccine (#1) 2025 HIB Vaccines Aged [...]
--- OUTSIDE RECORDS SUMMARY | 2025-05-17 13:35 | XMS_ITS | Encounter Summary ---
Author Organization [facility] Address [address] [place] [address] Phone Care Team Providers Care Housecleaner Name Role Phone Provider, Pola DE LEON Primary Care Provider [phone] Encounter Details Date Type Department Care Team (Late st Contact Info) Description 01/06/2010 Documentation [facility] [place] [address] [place] [address] Family Medicine, Physician [address] [place], [place] [address] Social History Tobacco Use Types Packs/Day Years [...] on filedocumented in this encounter Care Teams Housecleaner Relationship Specialty Start Date End Date Provider, MD Pola [address] [place] [address] PCP - General Pediatrics 05/12/22 08/16/24 documented as of this encounter
== END 2025-05-17 13:50 | disposition home or self-care (01) ==
LOC: HO.HCS 13:22
PROVIDERS: PCP Family Medicine; Visit Provider Internal Medicine
DX: R00.2 Palpitations (principal)
CPT/HCPCS: 99213

== ENCOUNTER → 2025-05-17 13:21 | Outpatient (BNVA) | payer MEDICARE, MEDICAID, SELFPAY | PROVIDERS: PCP Family Medicine; Visit Provider Internal Medicine | DX: R00.2 Palpitations (principal) | CPT/HCPCS: 99212 ==

== ENCOUNTER 2025-07-11 14:39 | Outpatient (AMB) | payer MEDICARE, MEDICAID, SELFPAY ==
--- NOTE | 2025-07-11 14:41 | A.OFFVIS_ITS ---
Vital Signs 07/11/25 14:47 Height 6 ft 3 in Weight 192 lb BMI 24.0 BP 126/62 Blood Pressure Location Rt brachial Position Sitting Pulse 76 Pulse Source Pulse Oximeter Pulse Oximetry (%) 98 Oxygen Delivery Method Room Air Intake Visit Reasons: 2h Intake Note: Est pt for mgmt of gas + abd pain. Labs not done, taking PPI. Needs to follow 2 week protocol. CC; Pt denies any GI changes or new sx. Confirms taking Rx as instructed and w/o complication. Plant Reliability Engineer Required: No Accompanied by: Self / Same As Patient Allergies guaifenesin Allergy (Mild, Verified 07/11/25 14:41) ticks HPI HPI 2h: Details: LAST VISIT: Postprandial abdominal bloating Flatulence/gas pain/belching Postprandial epigastric pain Postprandial diarrhea Plan Patient will stop omeprazole and start taking pantoprazole. Will check fecal calprotectin, H pylori, CRP, transglutaminase, vitamin B12, folate vitamin-D level. Patient was encouraged to change his diet. Avoid dietary triggers late night snacking. Staying upright for minimal 3 hours after meals discussed with patient. Patient will follow FODMAP diet. List of food recommended as well as list of food to avoid given to patient. Patient will follow-up in 3 months, sooner on as needed basis. Both patient and his mom are agreeable to plan of care and verbalizes understanding of instructions. He was given the opportunity to ask questions and all questions answered. ? Thank you for allowing me to participate in his care Orders Calprotectin, Fecal 05/02/25 R15.9 Vitamin B12 and Folate 05/02/25 R19.7 Vitamin D 25-OH (D2 and D3) 05/02/25 E55.9 FL upper GI w Ba Swallow 05/02/25 K21.9 H pylori Ag Stool 05/02/25 K21.9 C Reactive Protein 05/02/25 K58.9 Transglutaminase IgA 05/02/25 R10.9 New pantoprazole take one tablet half an hour before breakfast 40 mg PO DAILY 30 tabs 3RF K21.9 Discontinued omeprazole Discontinued Reason: Doctor's Order 20 mg PO DAILY 30 days 30 caps 0RF * TODAY'S VISIT Patient here for 2 month follow up from initial visit for GERD/Belching/Bloating/Postprandial epigastric pain. At initial visit workup was initiated and patient?s laboratory findings were normal (CBC, CMP, b12, folate, TTG IGA, CRP, Vitamin D). Mildly low vitamin-D, recommended taking vitamin-D daily. Patient did not do fecal calprotectin. He has not had the H. Pylori breath test. He is scheduled for an upper GI barium swallow in August. Today patient is with his mom for visit and she supplements history. Patient has been taking the pantoprazole 40mg daily with good improvement with GERD symptoms. He reports that he has been trying to follow the GERD and low FODMAP diets to help with symptoms. He has noticed that gluten tends to cause more bloating and gerd symptoms. Bloating and post prandial diarrhea has improved. He is having a bowel movement daily and denies dysphagia, odynophagia, early satiety, epigastric pain, lower abdominal pain, change in bowel habits, constipation, bloating, melena, hematochezia, excessive flatus, ribbon like stools, nausea, vomiting, unintentional weight loss. [facility] Medical History Tourettes syndrome Surgical History No pertinent past surgical history Family History Mother Diabetes High blood pressure Father Lyme disease Maternal Grandmother Atrial fibrillation and flutter Maternal Aunt Atrial fibrillation and flutter Irregular heart beat Other FH: mental illness Social History Housing: House Alcohol intake: never Patient Tobacco Use Status: Never used Tobacco e-Cigarette/Vaping Use: Never Used Second Hand Smoke Exposure: No service: No Current occupational exposures/hazards: No Cognitive needs: No Hearing needs: No Vision needs: No Review of Systems Const Denies weight gain and Denies weight loss ENT Reports no additional complaints, Denies dysphagia and Denies odynophagia Card Reports no additional complaints Resp Reports no additional complaints GI Denies abdominal pain, Denies belching, Denies melena, Reports bloating (Occasional), Denies change in bowel habits, Denies dysphagia, Denies excessive flatus, Denies dyspepsia, Denies heartburn, Denies diarrhea, Denies loose stools, Denies nausea, Denies odynophagia and Denies vomiting Reports no additional complaints Musc Reports no additional complaints Neuro Reports no additional complaints Psych Reports no additional complaints Endo Reports no additional complaints Physical Exam Vital Signs: Last Vital Signs Pulse 76 07/11/25 14:47 BP 126/62 07/11/25 14:47 Pulse Ox 98 07/11/25 14:47 Oxygen Delivery Method Room Air 07/11/25 14:47 BMI result Body Mass Index 24.0 Const General: healthy appearing, no acute distress and well developed Nutritional Appearance: well nourished Orientation/consciousness: patient oriented x3 Resp Effort & Inspection: normal respiratory effort, able to speak in complete sentences, no tracheal deviation and symmetric chest movement Auscultation: clear to auscultation bilaterally Cardio Rate: regular rate GI Inspection: Yes normal to inspection and No distended Palpation (GI): Soft to palpation, not firm, nontender and No hepatosplenomegaly present Auscultation: normal bowel sounds General: Yes no CVA tenderness Back/Spine/Pelvis Back: no CVA tenderness Skin General skin exam: elasticity normal, turgor normal and dry skin Neuro General: patient oriented x3 Psych Appearance: grossly normal Mental Status: mental status grossly normal Results Reviewed Results Reviewed: Laboratory Tests 05/02/25 15:49 C-Reactive Protein < 0.10 Vitamin B12 1121 H 25-OH Vitamin D Total 29 L TSH 0.54 Tiss Transglutamin IgA <1.0 Assessment & Plan Assessment & Plan (1) Abdominal discomfort: Code(s): R10.9 - Unspecified abdominal pain Category: Medical (2) Bloating: Code(s): R14.0 - Abdominal distension (gaseous) Category: Medical (3) GERD (gastroesophageal reflux disease): Code(s): K21.9 - Gastro-esophageal reflux disease without esophagitis Qualifiers: Esophagitis presence: esophagitis presence not specified Qualified Code(s): K21.9 - Gastro-esophageal reflux disease without esophagitis Plan Schedule h pylori breath test today. Will stop pantoprazole for 2 weeks prior to H. pylori breath test. Will put on famotidine 20mg BID in the meantime. Stop 24-48 hours before breath test. Avoid dietary triggers and late night snacking.? Staying upright for minimal 3 hours after meals discussed with patient.? Patient will followGERD/low FODMAP diet.? List of food recommended as well as list of food to avoid given to patient. GI barium swallow in August and follow up in office in September or sooner if needed. Both patient and his mother are agreeable to plan of care and verbalizes understanding of instructions. They were given the opportunity to ask questions and all questions answered. Thank you for allowing me to participate in his care Medications: New famotidine (Pepcid) 20 mg PO BID 30 tabs 0RF K29.70 - Gastritis, unspecified, without bleeding Coding Level of Care Code Est Pt Level 4 (61215) Complex EM visit Add On G2211 Diagnoses Abdominal discomfort R10.9 Bloating R14.0 Gastroesophageal reflux disease, unspecified whether esophagitis present K21.9 Esophagitis presence: esophagitis presence not specified Time Spent (min) 35 Comment 25 minutes spent with patient and additional 10 minutes spent reviewing his records
[2025-07-11 14:47] VITALS: BP 126/62; PULSE 76; O2SAT 98; BMI 24.0
--- OUTSIDE RECORDS SUMMARY | 2025-07-11 17:13 | XMS_ITS | Clinical Summary ---
Author Organization [facility] ity Address [address] [place] [address] Care Team Providers Care Tooth Cutter Name Role Phone Unavailable Primary Care Provider [...] 11/12/2023 Social Influencers of Health Screening 11/12/2023 Depression Screening 10/18/2024 COVID-19 Vaccine (1 - 2023-2 5 season) 2025 Influenza Vaccine (#1) 2025 HIB Vaccines Aged [...]
--- OUTSIDE RECORDS SUMMARY | 2025-07-11 17:13 | XMS_ITS | Encounter Summary ---
Author Organization [facility] Address [address] [place] [address] Phone Care Team Providers Care Ribbon Hand Name Role Phone Provider, Pola DE LEON Primary Care Provider [phone] Encounter Details Date Type Department Care Team (Late st Contact Info) Description 06/03/2017 Conversion Encounter [facility] - [address] [address] Social History Tobacco Use Types Packs/Day Years [...] on filedocumented in this encounter Care Teams Ribbon Hand Relationship Specialty Start Date End Date Provider, MD Pola [address] [place] [address] PCP - General Pediatrics 05/12/22 08/16/24 documented as of this encounter
--- OUTSIDE RECORDS SUMMARY | 2025-07-11 17:13 | XMS_ITS | Encounter Summary ---
Author Organization [facility] Address [address] [place] [address] Phone Care Team Providers Care Waste Machine Offbearer Name Role Phone Provider, Pola DE LEON Primary Care Provider [phone] Encounter Details Date Type Department Care Team (Late st Contact Info) Description 03/06/2018 [facility]counter [facility] [address] [address] Cyndy Good MD [address] [place] [address] Social History Tobacco Use Types Packs/Day Years [...] on filedocumented in this encounter Care Teams Waste Machine Offbearer Relationship Specialty Start Date End Date Provider, MD Pola [address] [place] [address] PCP - General Pediatrics 05/12/22 08/16/24 documented as of this encounter
--- OUTSIDE RECORDS SUMMARY | 2025-07-11 17:13 | XMS_ITS | Encounter Summary ---
Author Organization [facility] Address [address] [place] [address] Phone Care Team Providers Care Box Gluer Name Role Phone Provider, Pola DE LEON Primary Care Provider [phone] Encounter Details Date Type Department Care Team (Late st Contact Info) Description 01/06/2010 Documentation [facility] Family Medicine [address] [place] [address] Family Medicine, Physician [address] [place], [place] [address] Social History Tobacco Use Types Packs/Day Years [...] on filedocumented in this encounter Care Teams Box Gluer Relationship Specialty Start Date End Date Provider, MD Pola [address] [place] [address] PCP - General Pediatrics 05/12/22 08/16/24 documented as of this encounter
--- OUTSIDE RECORDS SUMMARY | 2025-07-11 17:13 | XMS_ITS | Encounter Summary ---
Author Organization [facility] Address [address] [place] [address] Phone Care Team Providers Care Cadworx Piping Designer Name Role Phone Provider, Pola DE LEON Primary Care Provider [phone] Encounter Details Date Type Department Care Team (Late st Contact Info) Description 05/12/2010 Documentation [facility] [place] [address] [place] [address] Family Medicine, Physician [address] [place], [place] [address] Social History Tobacco Use Types Packs/Day Years [...] on filedocumented in this encounter Care Teams Cadworx Piping Designer Relationship Specialty Start Date End Date Provider, MD Pola [address] [place] [address] PCP - General Pediatrics 05/12/22 08/16/24 documented as of this encounter
--- OUTSIDE RECORDS SUMMARY | 2025-07-11 17:13 | XMS_ITS | Clinical Summary ---
Author Organization [facility] Address [address] [place] [address] Phone Care Team Providers Care Scraper Loader Operator Name Role Phone Unavailable Primary Care [...] PM EST Pulse - - Temperature 36.9 C (98.5 F) 06/17/2015 12:00 AM EDT Respiratory Rate - - Oxygen Saturation - [...] 2 - Standard) 2017 Influenza Vaccines (#1) 2025 COVID-19 Vaccine (2 - 2024-2 6 season) 2025 08/26/2021 DTaP,Tdap,and Td Vaccines (8 - Td [...] Vaccines Completed 07/21/2019, 07/20/20 18 Insurance NON [facility] NON PCC
--- OUTSIDE RECORDS SUMMARY | 2025-07-11 17:13 | XMS_ITS | Encounter Summary ---
Author Organization [facility] Address [address] [place] [address] Phone Care Team Providers Care Solid Waste Technician Name Role Phone Provider, Pola DE LEON Primary Care Provider [phone] Encounter Details Date Type Department Care Team (Late st Contact Info) Description 03/11/2010 Documentation [facility] [address] [place] [address] Family Medicine, Physician [address] [place], [place] [address] Social History Tobacco Use Types Packs/Day Years [...] on filedocumented in this encounter Care Teams Solid Waste Technician Relationship Specialty Start Date End Date Provider, MD Pola [address] [place] [address] PCP - General Pediatrics 05/12/22 08/16/24 documented as of this encounter
== END 2025-07-11 15:24 | disposition home or self-care (01) ==
LOC: HO.HGI 14:39
PROVIDERS: PCP Family Medicine; Visit Provider Nurse Practitioner Family
DX: R10.9 Unspecified abdominal pain (principal); R14.0 Abdominal distension (gaseous); K21.9 Gastro-esophageal reflux disease without esophagitis
CPT/HCPCS: 99214; G2211

== ENCOUNTER → 2025-07-11 14:39 | Outpatient (BNVA) | payer MEDICARE, MEDICAID, SELFPAY | PROVIDERS: PCP Family Medicine; Visit Provider Nurse Practitioner Family | DX: R10.9 Unspecified abdominal pain (principal); K21.9 Gastro-esophageal reflux disease without esophagitis; R14.0 Abdominal distension (gaseous) | CPT/HCPCS: 99212 ==

== ENCOUNTER → 2025-07-12 14:02 | Outpatient (REF) | payer MEDICARE, MEDICAID, SELFPAY ==
--- NOTE | 2025-07-12 14:04 | CA_ITS ---
Transthoracic Echocardiogram Patient (Last, First, Middle): Nash Grey, Gender: M Date of : 2000 Age: 24 Procedure Date: 07/12/2025 Procedure Type: Transthoracic Echocardiogram Location: OP Height: 190.5 cm Weight: 87.09 kg BSA: 2.16 m2 Heart Rate: 57 bpm BP: 126 / 62 mmHg Occupational Therapist Rehab Manager: MOHSEN Referring MD: Loi Saldivar MD Wildlife Forensic Geneticist: Vic Rodriguez MD Symptoms: R00.2 - Palpitations Study Quality: Adequate ECG Rhythm: Bradycardia Conclusions: - Normal study Findings Left Ventricle Normal left ventricular size, thickness, and systolic function. The visually estimated ejection fraction is between 60-65%. Spectral Doppler is indicative of a normal filling pattern. Right Ventricle Normal right ventricular cavity size and systolic function. Atria Both atria are normal in size. There is no evidence of interatrial shunt. Aortic Valve Normal aortic valve structure and function. There is no aortic valve stenosis. There is no aortic valve regurgitation. Mitral Valve Normal mitral valve structure and function. There is trace mitral valve regurgitation. There is no mitral valve stenosis. Pulmonic Valve The pulmonic valve is likely normal. There is trace pulmonic valve regurgitation. Tricuspid Valve Normal tricuspid valve structure. There is trace tricuspid valve regurgitation. The right ventricular systolic pressure is normal. The right ventricular systolic pressure is 20 mmHg. Normal right atrial pressure. There is no evidence of pulmonary hypertension. Great Vessels All visible segments of the aorta are normal in size. The visualized portions of the pulmonary artery and branches are normal. Venous The inferior vena cava is normal in size and collapses greater than 50% with inspiration. Pericardium/Pleural There is no evidence of pericardial effusion. Prior Study Comparison No prior study available for comparison. Measurements 2D Linear Measurements IVSd: 0.72 0.6-0.9/0.6-1.0 cm LVIDd: 4.94 3.9-5.3/4.2-5.9 cm LVIDd Index: 2.29 2.4-3.2/2.2-3.1 cm/m2 LVIDs: 3.24 2.0-3.6 cm LVPWd: 0.83 0.7-1.1 cm LA Diam: 2.70 2.7-3.8/3.0-4.0 cm LAIDs Index: 1.25 1.5-2.3 cm/m2 LV Mass: 159.05 67-162/88-224 g LV Mass Index: 73.63 43-95/49-115 g/m2 LVOT Diam: 2.20 3.0+(-)1.3 cm 2D Systolic Function EF 4C: 64.60 >55% EF 2C: 61.60 >55% EF BiP: 63.90 >55% Mitral Valve MV Pk E: 0.75 MV PK A: 0.54 MV Decel Time: 332.00 E/A: 1.40 E'Lateral: 18.70 E'Medial: 13.60 E/E' Med: 5.50 E/E' Lat: 4.00 PHT: 97.00 MVA PHT: 2.27 Decel [place]: 2.27 Aortic Valve AoV Pk Chin: 1.21 AoV Mn Chin: 0.79 AoV VTI: 0.26 AoV Pk Grad: 6.00 Aov Mn Grad: 3.00 MONTEZ Cont.VTI: 3.31 LVOT LVOT Pk Chin: 1.12 LVOT Mn Chin: 0.73 LVOT VTI: 0.23 LVOT Pk Grad: 5.00 LVOT Mn Grad: 2.00 LVOT Diam: 2.20 LVOT Area: 3.80 Diastolic Function MV Pk E: 0.75 MV Pk A: 0.54 E/A: 1.40 E'Medial: 13.60 E/E' Med: 5.50 E' Laterial: 18.70 E/E' Lat: 4.00 Right Ventricle TAPSE (mm): 30.10 TVS' Chin: 16.40 Tricuspid Valve TR Pk Chin: 1.72 TR Pk Grad: 12.00 RA Press: 8.00 RVSP: 20.00 Great Vessels Aorta Sinus of Valsalva: 3.04 2.0-3.[address] Ridge: 2.28 1.7-3.4 cm Ao Asc: 2.70 2.1-3.4 cm Ao Arch: 2.80 Pulmonary Veins Pulm Vein S/D 0.70 Updated in Other Vendor System with Status of Final Vic Rodriguez MD electronically signed on 07/12/2025 4:33:00 PM with status of Final
--- OUTSIDE RECORDS SUMMARY | 2025-07-12 18:31 | XMS_ITS | Clinical Summary ---
Author Organization [facility] ity Address [address] [place] [address] Care Team Providers Care Aviation Technical Systems Specialist Name Role Phone Unavailable Primary Care Provider [...]
--- OUTSIDE RECORDS SUMMARY | 2025-07-12 18:31 | XMS_ITS | Encounter Summary ---
Author Organization [facility] Address [address] [place] [address] Phone Care Team Providers Care Asp Net Software Developer Name Role Phone Provider, Pola DE LEON Primary Care Provider [phone] Encounter Details Date Type Department Care Team (Late st Contact Info) Description 03/11/2010 Documentation [facility] [place] [address] [place] [address] Family Medicine, Physician [address] [place], [place] [address] Social History Tobacco Use Types Packs/Day Years [...] on filedocumented in this encounter Care Teams Asp Net Software Developer Relationship Specialty Start Date End Date Provider, MD Pola [address] [place] [address] PCP - General Pediatrics 05/12/22 08/16/24 documented as of this encounter
--- OUTSIDE RECORDS SUMMARY | 2025-07-12 18:31 | XMS_ITS | Encounter Summary ---
Author Organization [facility] Address [address] [place] [address] Phone Care Team Providers Care Endoscope Technician Name Role Phone Provider, Pola DE LEON Primary Care Provider [phone] Encounter Details Date Type Department Care Team (Late st Contact Info) Description 03/06/2018 [facility] Encounter [facility] [address] [address] Cyndy Good MD [address] [place] [address] Social History Tobacco Use Types Packs/Day Years [...] on filedocumented in this encounter Care Teams Endoscope Technician Relationship Specialty Start Date End Date Provider, MD Pola [address] [place] [address] PCP - General Pediatrics 05/12/22 08/16/24 documented as of this encounter
--- OUTSIDE RECORDS SUMMARY | 2025-07-12 18:31 | XMS_ITS | Encounter Summary ---
Author Organization [facility] Address [address] [place] [address] Phone Care Team Providers Care Windows Administrator Name Role Phone Provider, Pola DE LEON Primary Care Provider [phone] Encounter Details Date Type Department Care Team (Late st Contact Info) Description 01/06/2010 Documentation [facility] [address] [place] [address] Family Medicine, Physician [address] [place], [place] [address] Social History Tobacco Use Types Packs/Day Years [...] on filedocumented in this encounter Care Teams Windows Administrator Relationship Specialty Start Date End Date Provider, MD Pola [address] [place] [address] PCP - General Pediatrics 05/12/22 08/16/24 documented as of this encounter
--- OUTSIDE RECORDS SUMMARY | 2025-07-12 18:31 | XMS_ITS | Encounter Summary ---
Author Organization [facility] Address [address] [place] [address] Phone Care Team Providers Care Logistics Loss Prevention Manager Name Role Phone Provider, Pola DE LEON Primary Care Provider [phone] Encounter Details Date Type Department Care Team (Late st Contact Info) Description 06/03/2017 Conversion Encounter [facility] - [address] [address] Social History Tobacco Use Types Packs/Day Years [...] on filedocumented in this encounter Care Teams Logistics Loss Prevention Manager Relationship Specialty Start Date End Date Provider, MD Pola [address] [place] [id number] PCP - General Pediatrics 05/12/22 08/16/24 documented as of this encounter
--- OUTSIDE RECORDS SUMMARY | 2025-07-12 18:31 | XMS_ITS | Clinical Summary ---
Author Organization [facility] Address [address] [place] [address] Phone Care Team Providers Care Blood Donor Recruiter Name Role Phone Unavailable Primary Care Provider [...] Vaccines Completed 07/21/2019, 07/20/20 18 Insurance NON [facility] NON [facility]
--- OUTSIDE RECORDS SUMMARY | 2025-07-12 18:31 | XMS_ITS | Encounter Summary ---
Author Organization [facility] Address [address] [place] [address] Phone Care Team Providers Care Operations Mgr Name Role Phone Provider, Pola DE LEON Primary Care Provider Encounter Details Date Type Department Care Team (Late st Contact Info) Description 05/12/2010 Documentation [facility] [place] [facility] [address] [place] [address] Family Medicine, Physician [address] [place], [place] [address] Social History Tobacco Use Types Packs/Day Years [...] filedocumented in this encounter Care Teams Operations Mgr Relationship Specialty Start Date End Date Provider, MD Pola [address] [place] [address] PCP - General Pediatrics 05/12/22 08/16/24 documented as of this encounter
== END ==
LOC: HO.CARD 14:02
PROVIDERS: PCP Family Medicine; Visit Provider Internal Medicine
DX: R00.2 Palpitations (principal)
CPT/HCPCS: 93246; 93306

== ENCOUNTER → 2025-07-12 14:04 | Outpatient (BNV) | payer MEDICARE, MEDICAID, SELFPAY | PROVIDERS: PCP Family Medicine; Visit Provider Internal Medicine Cardiovascular Disease | DX: R00.2 Palpitations (principal) | CPT/HCPCS: 93306 ==

== ENCOUNTER 2025-08-09 14:27 | Outpatient (AMB) | payer MEDICARE, MEDICAID, SELFPAY ==
[2025-08-09 14:35] VITALS: BP 120/52; PULSE 91; BMI 24.4
--- NOTE | 2025-08-09 14:35 | MHC.OFFVIS ---
Vital Signs 08/09/25 14:35 Height 6 ft 3 in Weight 194 lb 14.218 oz BMI 24.4 BP 120/52 L Blood Pressure Location Lt brachial Position Sitting Pulse 91 Pulse Source Pulse Oximeter Intake Visit Reasons: follow up/ holter/ echo Bituminous Paving Machine Operator Required: No Accompanied by: Mother Allergies guaifenesin Allergy (Mild, Verified 08/09/25 14:38) ticks Medication List - Last Reconciled 08/09/25 by Luis M Alfonso NP sertraline 50 mg PO DAILY HPI Comments Details: This is a 24-year-old male patient coming in for a follow-up visit accompanied by his mom. Patient with a history of anxiety who was previously seen in the office for reports of palpitations. Mom states that patient started having the palpitations when he was on Concerta for ADD and came off the medication but still noticed the palpitations. Patient has undergone an echo and a Holter study and is here to review the results for this. Today, patient reports improvement in the palpitations however patient does note that these palpitations are more so noticed after drinking coffee or when he is anxious. Patient is otherwise denying any associated symptoms of exertional chest pain, shortness of breath, dizziness, orthopnea, PND, leg edema, presyncope or syncope. Patient denies the use of any tobacco or alcohol or street drugs. [facility] Medical History Tourettes syndrome Surgical History No pertinent past surgical history Family History Mother Diabetes High blood pressure Father Lyme disease Maternal Grandmother Atrial fibrillation and flutter Maternal Aunt Atrial fibrillation and flutter Irregular heart beat Other FH: mental illness Social History Housing: House Alcohol intake: never Patient Tobacco Use Status: Never used Tobacco e-Cigarette/Vaping Use: Never Used Second Hand Smoke Exposure: No service: No Current occupational exposures/hazards: No Cognitive needs: No Hearing needs: No Vision needs: No Review of Systems Const Denies daytime sleepiness, Denies difficulty sleeping, Denies snoring, Denies stops breathing during sleep and Denies weakness Card Denies chest pain, Denies rapid heart rate, Denies irregular heart rhythm, Denies claudication, Denies leg edema, Denies lightheadedness, Denies palpitations, Denies dyspnea, Denies dyspnea on exertion, Denies orthopnea, Denies paroxysmal nocturnal dyspnea and Denies slow heart rate Resp Denies cough, Denies dyspnea, Denies dyspnea on exertion and Denies snoring GI Reports no additional complaints, Denies hematochezia, Denies change in stool character and Denies dyspepsia Musc Denies abnormal gait, Denies muscle weakness and Denies numbness Neuro Denies abnormal gait, Denies numbness and Denies weakness Endo Denies palpitations Physical Exam Vital Signs: Last Vital Signs Pulse 91 08/09/25 14:35 BP 120/52 L 08/09/25 14:35 BMI result Body Mass Index 24.4 Const General: cooperative, healthy appearing, comfortable and no acute distress Orientation/consciousness: patient oriented x3 HEENT Head: Yes normal to inspection Neck Neck: Yes normal visual inspection, Yes trachea midline and Yes supple Chest Chest palpation & inspection: normal inspection of the chest Resp Effort & Inspection: normal respiratory effort Auscultation: clear to auscultation bilaterally, no crackles, no rales, no rhonchi and no wheezes Cardio Jugular venous distension: no JVD Palpation: normal PMI Rate: regular rate Rhythm: regular rhythm Heart sounds: S1 normal heart sound present, S2 normal heart sound present, no click, no gallops, no murmurs and no rubs Peripheral pulses: Peripheral pulses 2+ throughout GI Inspection: Yes normal to inspection Palpation (GI): Soft to palpation Auscultation: normal bowel sounds Skin General skin exam: no rashes or lesions noted Neuro General: patient oriented x3 Extrem General: Yes normal to inspection, No no pedal edema and No calf tenderness Psych Appearance: grossly normal Mental Status: mental status grossly normal Speech and movement: Normal speech and movement present Assessment & Plan Assessment & Plan (1) Palpitations: Code(s): R00.2 - Palpitations Category: Medical Plan: 07/12/2025-echo study showed a normal LV systolic function with the ejection fraction between 60-65%. 07/12/2025-Holter study showed underlying sinus rhythm with rare PACs and PVCs. Patient marked his symptoms with sinus tachycardia mostly when he is exercising arm moving around. Given his improvement in palpitations, no further indication for testing at this point. Discussed in detail that sinus tachycardia when active or exercising is benign. Patient notes that he only drinks 3-4 cups of water a day. Explained the need for adequate hydration to improve elevated heart rates. Advised at least 30-40oz a day. Patient verbalizes understanding of this. Advised heart healthy diet, regular exercise, stress mitigation strategies, adequate hydration, avoiding stimulants such as caffeinated beverages, and management of vascular risk factors. Follow up on an as-needed basis. In the interim, patient will call the office with any concerns or change in symptoms. This note was generated using voice recognition software. While every effort has been made to ensure accuracy and proper barometers calibrator, there may be occasional errors that could affect the content or meaning of the described symptoms. Coding Level of Care Code Est Pt Level 3 (54600) Complex EM visit Add On G2211 Diagnoses Palpitations R00.2 Time Spent (min) 29 Comment Time spent in reviewing the chart, test results, assessment, counseling and documentation.
--- OUTSIDE RECORDS SUMMARY | 2025-08-09 18:19 | XMS_ITS | Clinical Summary ---
Author Organization [facility] Address [address] [place] [address] Phone Care Team Providers Care Carpentry Professional Name Role Phone Unavailable Primary Care Provider [...] Vaccines Completed 07/21/2019, 07/20/20 18 Insurance NON [facility] NON PCC
--- OUTSIDE RECORDS SUMMARY | 2025-08-09 18:19 | XMS_ITS | Clinical Summary ---
Author Organization [facility] ity Address [address] [place] [address] Care Team Providers Care Perfume And Toilet Water Maker Name Role Phone Unavailable Primary Care Provider [...] 5 season) 2025 Influenza Vaccine (#1) 2025 RSV Immunization Adult Patie nts (1 - 1-dose 75+ series) 2076 HIB Vaccines Aged Out No longer eligi [...]
--- OUTSIDE RECORDS SUMMARY | 2025-08-09 18:19 | XMS_ITS | Encounter Summary ---
Author Organization [facility] Address [address] [place] [address] Phone Care Team Providers Care Pest Control Worker Name Role Phone Provider, Pola DE LEON Primary Care Provider [phone] Encounter Details Date Type Department Care Team (Late st Contact Info) Description 03/11/2010 Documentation [facility] Family Medicine [address] [place] [address] Family Medicine, Physician [address] [place], [place] [address] Social History Tobacco Use Types Packs/Day Years [...] on filedocumented in this encounter Care Teams Pest Control Worker Relationship Specialty Start Date End Date Provider, MD Pola [address] [place] [address] PCP - General Pediatrics 05/12/22 08/16/24 documented as of this encounter
--- OUTSIDE RECORDS SUMMARY | 2025-08-09 18:19 | XMS_ITS | Encounter Summary ---
Author Organization [facility] Address [address] [place] [address] Phone Care Team Providers Care Internet Merchant Name Role Phone Provider, Pola DE LEON Primary Care Provider [phone] Encounter Details Date Type Department Care Team (Late st Contact Info) Description 05/12/2010 Documentation [facility] Family Medicine [address] [place] [address] Family Medicine, Physician [address] [place], [place] [address] Social History Tobacco Use Types Packs/Day Years [...] on filedocumented in this encounter Care Teams Internet Merchant Relationship Specialty Start Date End Date Provider, MD Pola [address] [place] [address] PCP - General Pediatrics 05/12/22 08/16/24 documented as of this encounter
--- OUTSIDE RECORDS SUMMARY | 2025-08-09 18:19 | XMS_ITS | Encounter Summary ---
Author Organization [facility] Address [address] [place] [address] Phone Care Team Providers Care Inside Outside Sales Representative Name Role Phone Provider, Pola DE LEON Primary Care Provider [phone] Encounter Details Date Type Department Care Team (Late st Contact Info) Description 03/06/2018 [facility] [address] [address] Cyndy Good MD [address] [place] [address] Social History Tobacco Use Types Packs/Day Years [...] on filedocumented in this encounter Care Teams Inside Outside Sales Representative Relationship Specialty Start Date End Date Provider, MD Pola [address] [place] [address] PCP - General Pediatrics 05/12/22 08/16/24 documented as of this encounter
--- OUTSIDE RECORDS SUMMARY | 2025-08-09 18:19 | XMS_ITS | Encounter Summary ---
Author Organization [facility] Address [address] [place] [address] Phone Care Team Providers Care Drapery Seamstress Name Role Phone Provider, Pola DE LEON Primary Care Provider [phone] Encounter Details Date Type Department Care Team (Late st Contact Info) Description 06/03/2017 Conversion Encounter [facility] - [address] [address] Social History Tobacco Use Types Packs/Day Years [...] on filedocumented in this encounter Care Teams Drapery Seamstress Relationship Specialty Start Date End Date Provider, MD Pola [address] [place] [address] PCP - General Pediatrics 05/12/22 08/16/24 documented as of this encounter
--- OUTSIDE RECORDS SUMMARY | 2025-08-09 18:19 | XMS_ITS | Encounter Summary ---
Author Organization [facility] Address [address] [place] [address] Phone Care Team Providers Care Correctional Security Officer Name Role Phone Provider, Pola DE LEON Primary Care Provider [phone] Encounter Details Date Type Department Care Team (Late st Contact Info) Description 01/06/2010 Documentation [facility] Family Medicine [address] [place] [address] Family Medicine, Physician [address] [place], [place] [address] Social History Tobacco Use Types Packs/Day Years [...] on filedocumented in this encounter Care Teams Correctional Security Officer Relationship Specialty Start Date End Date Provider, MD Pola [address] [place] [address] PCP - General Pediatrics 05/12/22 08/16/24 documented as of this encounter
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
== END 2025-08-09 15:03 | disposition home or self-care (01) ==
LOC: HO.HCS 14:28
PROVIDERS: PCP Family Medicine
DX: R00.2 Palpitations (principal)
CPT/HCPCS: 99213; G2211

== ENCOUNTER → 2025-08-09 14:27 | Outpatient (BNVA) | payer MEDICARE, MEDICAID, SELFPAY | PROVIDERS: PCP Family Medicine | DX: R00.2 Palpitations (principal) | CPT/HCPCS: 99212 ==

== ENCOUNTER 2025-08-21 09:24 | Outpatient (REF) | payer MEDICARE, MEDICAID, SELFPAY ==
--- NOTE | ~2025-08-21 | FL_ITS ---
FLUOROSCOPY BARIUM SWALLOW FLUOROSCOPY UPPER GI SERIES CLINICAL INFORMATION: Gastroesophageal reflux disease COMPARISON: None available TECHNIQUE: Under fluoroscopy, Effervescent granules, thick and thin barium, and a barium pill were administered orally, barium swallow and upper GI evaluation was performed. FLUOROSCOPY TIME: 30 seconds DOSE AREA PRODUCT: 54 mgy FINDINGS Swallowing: Normal swallowing reflex. Normal motility. No penetration or aspiration events occurred throughout the procedure. Esophagus: Normal caliber and motility.. No esophageal mass or ulceration is seen. No fixed stricture is seen. Patient swallowed a barium pill, with normal passage to the stomach. Gastroesophageal Reflux: None. No spontaneous reflux noted during the examination. Stomach and proximal bowel: No mass or mucosal lesions identified.. There is normal passage of the barium through the stomach to the bowel. FL/FL upper GI w air w Ba Swallow IMPRESSION: No significant abnormality identified by barium study. Electronically signed by: Jorge Qureshi MD 08/21/2025 12:43 PM [facility] [place]
--- OUTSIDE RECORDS SUMMARY | 2025-08-21 10:24 | XMS_ITS | Encounter Summary ---
Author Organization [facility] Address [address] [place] [address] Phone Care Team Providers Care Manager Commercial Name Role Phone Provider, Pola DE LEON Primary Care Provider [phone] Encounter Details Date Type Department Care Team (Late st Contact Info) Description 01/06/2010 Documentation [facility] [place] [address] [place] [address] Family Medicine, Physician [address] [place], [place] [address] Social History Tobacco Use Types Packs/Day Years [...] filedocumented in this encounter Care Teams Manager Commercial Relationship Specialty Start Date End Date Provider, MD Pola [address] [place] [address] PCP - General Pediatrics 05/12/22 08/16/24 documented as of this encounter
--- OUTSIDE RECORDS SUMMARY | 2025-08-21 10:24 | XMS_ITS | Data Portability ---
Author Organization [facility]b [facility] [address] Address [address] [place] [address] Assessment No assessment recorded. Plan of Treatment Reminders Order Date Submit Date Provider Last Modified By Organization Details Last Modified Time Details Appointments None recorded. Lab None recorded. Referral orthopedic surgeon referral 2022 023 [email or web address] [facility], [address], [place], [address], 16:55:19 Procedures None recorded. Surgeries None recorded. [...] Limited extension of the elbow. 2022 023 [facility], [address] [place] [address], [address], 14:51:31 Medication Orders ibuprofen 600 mg tablet 2022 023 [facility], [address] [facility], [place], [address], 14:14:35 Patient TargetsNo targets recorded. Patient Instructions Encounter Date Encounter Id Patient Instructions Last Modified By Organization Details Last Modified Time 01/30/2023 [id number] elbow sprain: care instructions [email or web address] Not available 01/30/2023 14:14:24 elbow bursitis: exercises [email or web address] Not available 01/30/2023 14:14:24 Reason for Referral Orthopedic Surgeon Referral for Fracture of distal end of humerus Referring Physician: Xiao Drake, Urgent Care, Encounter Date: 01/30/2023 Results Created Date Observation Date Name Description Value Unit Range Abnormal Flag Note LastModifiedBy Organization Detail LastModifiedTime 01/31/20 23 01/30/2023 XR, elbow , 3 or more view No observ ation record ed. [email or web address] [facility] [address] [place], [address], 01/30/2023 15:29:09 Result Notes None recorded. Problems Name Problem SNOMED Code Status Onset Date Resolution Date Notes Provider Name and Address Organization Details Recorded Time Anxiety 61170967 Active 2022 PIPO lakhani, [place] - [facility] 3 13:21:56 Attention deficit hyperactivity disorder, predominantly inattentive type 56908880 Active 2022 [facility] lakhani, [place] - [facility] [...] Last Updated DateTime 190.5 cm 21.2 kg/m2 95676.7 g 97.8 [degF] 18 /min 82 /min 100 % 100 % 110/63 mm[Hg] PIPO PUGA Efra PA - [facility] 13:23:31 Social History Question Answer Notes LastModified by [employer] Details LastModified Time Tobacco Smoking Status Never [...] Functional Status Question Answer Note LastModified by [employer] Details LastModified Time Do you use any [...] ICD10 Code Diagnosis IMO Codes Diagnosis Note [id number] [facility] [address] [facility] [address] [place] [address] 02/09/2019 10:41:33 02/09/2019 11:32:[id number] [place] [address] [address] [facility] [address] [place] [address] 11/18/2016 17:05:51 11/18/2016 18:09:03 [id number] [facility] [address] [facility] [address] [place] [address] 05/22/2016 18:31:22 05/22/2016 19:27:[id number] [place] [address] [address] [facility] [address] 09/06/2021 14:10:40 09/06/2021 16:18:[id number] [place] [address] [address] 06/03/2017 14:35:22 06/03/2017 15:24:58 [id number] DAMARIS KIDD [address] [address] 01/30/2023 12:42:42 01/30/2023 14:24:56 Contusion of right elbow [id number] S50.01XA X-ray shows some effusion in the [...] Fracture o f distal end of humerus 024161989 S42.401A Will need to see orthopedis t [...] Beatty Member ID Guarantor Name 01/30/2023 1 [facility] [employer] [facility] TOGETHER WITH [facility] (MEDICAID HMO) [id number] Nashrigo Grey [id number] Nash Grey 01/30/2023 1 MEDICARE B-[place]: [employer] Nashrigo Grey [id number] Nash Grey 01/30/2023 2 MED[place]: [facility] Nashrigo Grey [id number] Nash Grey Notes Date Note Type Note [...] or clavicle pain. no LOC. DAMARIS KIDD [address] [place], [place] [address]Soto Vidal Miriam, [address], [place] - [facility] 01/30/2023 15:33:47
--- OUTSIDE RECORDS SUMMARY | 2025-08-21 10:24 | XMS_ITS | Encounter Summary ---
Author Organization [facility] Address [address] [place] [address] Phone Care Team Providers Care Family Intervention Specialist Name Role Phone Provider, Pola DE LEON Primary Care Provider [phone] Encounter Details Date Type Department Care Team (Late st Contact Info) Description 05/12/2010 Documentation [facility] [place] Family Medicine [address] [place] [address] Family Medicine, Physician [address] [place], [place] [address] Social History Tobacco Use Types Packs/Day Years [...] on filedocumented in this encounter Care Teams Family Intervention Specialist Relationship Specialty Start Date End Date Provider, MD Pola [address] [place] [address] PCP - General Pediatrics 05/12/22 08/16/24 documented as of this encounter
--- OUTSIDE RECORDS SUMMARY | 2025-08-21 10:24 | XMS_ITS | Encounter Summary ---
Author Organization [facility] Address [address] [place] [address] Phone Care Team Providers Care Railroad Supervisor Of Engines Name Role Phone Provider, Pola DE LEON Primary Care Provider [phone] Encounter Details Date Type Department Care Team (Late st Contact Info) Description 03/06/2018 [facility]counter [facility] [address] [address] Cyndy Good MD [address] [place] [address] Social History Tobacco Use Types Packs/Day Years [...] on filedocumented in this encounter Care Teams Railroad Supervisor Of Engines Relationship Specialty Start Date End Date Provider, MD Pola [address] [place] [address] PCP - General Pediatrics 05/12/22 08/16/24 documented as of this encounter
--- OUTSIDE RECORDS SUMMARY | 2025-08-21 10:24 | XMS_ITS | Clinical Summary ---
Author Organization [facility] ity Address [address] [place] [address] Care Team Providers Care Chemistry Research Assistant Name Role Phone Unavailable Primary Care Provider [...]
--- OUTSIDE RECORDS SUMMARY | 2025-08-21 10:24 | XMS_ITS | Encounter Summary ---
Author Organization [facility] Address [address] [place] [address] Phone Care Team Providers Care Instrument Adjuster Name Role Phone Provider, Pola DE LEON Primary Care Provider [phone] Encounter Details Date Type Department Care Team (Late st Contact Info) Description 06/03/2017 Conversion Encounter [facility] - [address] [address] Social History Tobacco Use Types Packs/Day Years [...] on filedocumented in this encounter Care Teams Instrument Adjuster Relationship Specialty Start Date End Date Provider, MD Pola [address] [place] [address] PCP - General Pediatrics 05/12/22 08/16/24 documented as of this encounter
--- OUTSIDE RECORDS SUMMARY | 2025-08-21 10:24 | XMS_ITS | Encounter Summary ---
Author Organization [facility] Address [address] [place] [address] Phone Care Team Providers Care Compress Machine Operator Name Role Phone Provider, Pola DE LEON Primary Care Provider [phone] Encounter Details Date Type Department Care Team (Late st Contact Info) Description 03/11/2010 Documentation [facility] [place] [address] [place] [address] Family Medicine, Physician [address] [place], [place] [address] Social History Tobacco Use Types Packs/Day Years [...] on filedocumented in this encounter Care Teams Compress Machine Operator Relationship Specialty Start Date End Date Provider, MD Pola [address] [place] [address] PCP - General Pediatrics 05/12/22 08/16/24 documented as of this encounter
--- OUTSIDE RECORDS SUMMARY | 2025-08-21 10:24 | XMS_ITS | Clinical Summary ---
Author Organization [facility] Address [address] [place] [address] Phone Care Team Providers Care Tribal Judge Name Role Phone Unavailable Primary Care Provider [...] Vaccines Completed 07/21/2019, 07/20/20 18 Insurance NON [facility] NON PCC
== END 2025-08-21 09:25 | disposition home or self-care (01) ==
LOC: HO.XRAY 09:24
PROVIDERS: PCP Family Medicine; Visit Provider Nurse Practitioner Family
DX: K21.9 Gastro-esophageal reflux disease without esophagitis (principal)
CPT/HCPCS: 74246

== ENCOUNTER → 2025-08-21 09:27 | Outpatient (BNV) | payer MEDICARE, MEDICAID, SELFPAY | PROVIDERS: PCP Family Medicine; Visit Provider Radiology Diagnostic Ultrasound | DX: K21.9 Gastro-esophageal reflux disease without esophagitis (principal) | CPT/HCPCS: 74246 ==

== ENCOUNTER 2025-08-24 14:27 | Outpatient (REF) | payer MEDICARE, MEDICAID, SELFPAY | END 2025-08-24 14:28 | disposition home or self-care (01) | LOC: HO.LAB 14:27 | PROVIDERS: PCP Family Medicine; Visit Provider Nurse Practitioner Family | DX: R14.0 Abdominal distension (gaseous) (principal); R10.9 Unspecified abdominal pain | CPT/HCPCS: 83013; 99211 ==

== ENCOUNTER 2025-08-24 14:27 | Outpatient (AMB) | payer MEDICARE, MEDICAID, SELFPAY ==
--- NOTE | 2025-08-24 15:01 | AM.OFFVISNUR ---
Intake Visit Reasons: h pylori Intake Note: Pt presents for H Pylori BT. Protocols reviewed with pt and confirmed to be followed. Pt advised of instructions for the test and began testing at 1515. Testing was concluded at 1530. No questions or additional concerns per pt at the end of testing. Advised pt that we will contact them with results when they are obtained. Edi Programmer Analyst Required: No Accompanied by: Self / Same As Patient Allergies guaifenesin Allergy (Mild, Verified 08/09/25 14:38) ticks Assessment & Plan Assessment & Plan (1) Bloating: Code(s): R14.0 - Abdominal distension (gaseous) Category: Medical (2) Abdominal discomfort: Code(s): R10.9 - Unspecified abdominal pain Category: Medical Coding Level of Care Code Established Pt Procedure Only Patient Type Established Diagnoses Bloating R14.0 Abdominal discomfort R10.9
--- OUTSIDE RECORDS SUMMARY | 2025-08-24 16:06 | XMS_ITS | Encounter Summary ---
Author Organization [facility] Address [address] [place] [address] Phone Care Team Providers Care Pattern Illustrator Name Role Phone Provider, Pola DE LEON Primary Care Provider [phone] Encounter Details Date Type Department Care Team (Late st Contact Info) Description 03/11/2010 Documentation [facility] [place] Family Medicine [address] [place] [address] Family Medicine, Physician [address] [place], [place] [address] Social History Tobacco Use Types Packs/Day Years [...] on filedocumented in this encounter Care Teams Pattern Illustrator Relationship Specialty Start Date End Date Provider, MD Pola [address] [place] [address] PCP - General Pediatrics 05/12/22 08/16/24 documented as of this encounter
--- OUTSIDE RECORDS SUMMARY | 2025-08-24 16:06 | XMS_ITS | Encounter Summary ---
Author Organization [facility] Address [address] [place] [address] Phone Care Team Providers Care Inspector Final Assembly Electrical Name Role Phone Provider, Pola DE LEON Primary Care Provider [phone] Encounter Details Date Type Department Care Team (Late st Contact Info) Description 03/06/2018 [facility]counter [facility] [address] [address] Cyndy Good MD [address] [place] [address] Social History Tobacco Use Types Packs/Day Years [...] on filedocumented in this encounter Care Teams Inspector Final Assembly Electrical Relationship Specialty Start Date End Date Provider, MD Pola [address] [place] [address] PCP - General Pediatrics 05/12/22 08/16/24 documented as of this encounter
--- OUTSIDE RECORDS SUMMARY | 2025-08-24 16:06 | XMS_ITS | Data Portability ---
Author Organization DAMARIS [facility]lieb [facility] [address] Address [address] [place] [address] Assessment No assessment recorded. Plan of Treatment Reminders Order Date Submit Date Provider Last Modified By Organization Details Last Modified Time Details Appointments None recorded. Lab None recorded. Referral orthopedic surgeon referral 2022 023 [email or web address] [facility], [address], [place], [address], 16:55:19 Procedures None recorded. Surgeries None recorded. [...] Limited extension of the elbow. 2022 023 [facility], [address] [place] [address], [address], 14:51:31 Medication Orders ibuprofen 600 mg tablet 2022 023 [id number], [address] [facility], [place], [address], 14:14:35 Patient TargetsNo targets recorded. Patient Instructions Encounter Date Encounter Id Patient Instructions Last Modified By Organization Details Last Modified Time 01/30/2023 [id number] elbow sprain: care instructions [email or web address] Not available 01/30/2023 14:14:24 elbow bursitis: exercises [...] more view No observ ation record ed. [email or web address] [facility] [address] [place], [address], 01/30/2023 15:29:09 Result Notes None recorded. 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 [facility], [place] - [facility] [...] Last Updated DateTime 190.5 cm 21.2 kg/m2 28884.7 g 97.8 [degF] 18 /min 82 /min 100 % 100 % 110/63 mm[Hg] PIPO PUGA Efra [place] - [facility] 13:23:31 Social History Question Answer Notes LastModified by [employer] Details LastModified Time Tobacco Smoking Status Never [...] Functional Status Question Answer Note LastModified by [employer] Details LastModified Time Do you use any [...] ICD10 Code Diagnosis IMO Codes Diagnosis Note [id number] [facility] [address] [place] [address] 02/09/2019 10:41:33 02/09/2019 11:32:[id number] [place] [address] [facility] [address] [place] [phone] 11/18/2016 17:05:51 11/18/2016 18:09:03 [id number] [facility] [address] [place] [phone] 05/22/2016 18:31:22 05/22/2016 19:27:[id number] [place] [address] [address] [facility] [address] [address] 09/06/2021 14:10:40 09/06/2021 16:18:[id number] [place] [address] [address] [address] 06/03/2017 14:35:22 06/03/2017 15:24:58 [id number] DAMARIS KIDD [address] [phone] 01/30/2023 12:42:42 01/30/2023 14:24:56 Contusion of right elbow [id number] S50.01XA X-ray shows some effusion in the [...] Fracture o f distal end of humerus [id number] S42.401A Will need to see orthopedis t [...] Beatty Member ID Guarantor Name 01/30/2023 1 [facility] WITH [facility] (MEDICAID HMO) [id number] Nashrigo Grey [id number] Nash Grey 01/30/2023 1 MEDICARE B-[place]: [employer] Nashrigo Grey [id number] Nash Grey 01/30/2023 2 [place]: [facility] Nashrigo Grey [id number] Nash Grey Notes Date Note Type Note [...] or clavicle pain. no LOC. DAMARIS KIDD [address] [place], [place] [address]Soto Vidal Miriam, [address], [place] - [facility] 01/30/2023 15:33:47
--- OUTSIDE RECORDS SUMMARY | 2025-08-24 16:06 | XMS_ITS | Encounter Summary ---
Author Organization [facility] Address [address] [place] [address] Phone Care Team Providers Care Lug Breaker And Wire Puller Name Role Phone Provider, Pola DE LEON Primary Care Provider [phone] Encounter Details Date Type Department Care Team (Late st Contact Info) Description 05/12/2010 Documentation [facility] [place] Family Medicine [address] [place] [address] Family Medicine, Physician [address] [place], [place] [address] Social History Tobacco Use Types Packs/Day Years [...] on filedocumented in this encounter Care Teams Lug Breaker And Wire Puller Relationship Specialty Start Date End Date Provider, MD Pola [address] [place] [address] PCP - General Pediatrics 05/12/22 08/16/24 documented as of this encounter
--- OUTSIDE RECORDS SUMMARY | 2025-08-24 16:06 | XMS_ITS | Clinical Summary ---
Author Organization [facility] Address [address] [place] [address] Phone Care Team Providers Care Residential Therapist Name Role Phone Unavailable Primary Care Provider [...] Vaccines Completed 07/21/2019, 07/20/20 18 Insurance NON [facility] NON PCC
--- OUTSIDE RECORDS SUMMARY | 2025-08-24 16:06 | XMS_ITS | Encounter Summary ---
Author Organization [facility] Address [address] [place] [address] Phone Care Team Providers Care Sfdc Consultant Name Role Phone Provider, Pola DE LEON Primary Care Provider [phone] Encounter Details Date Type Department Care Team (Late st Contact Info) Description 06/03/2017 Conversion Encounter [facility] - [address] [address] Social History Tobacco Use Types Packs/Day Years [...] on filedocumented in this encounter Care Teams Sfdc Consultant Relationship Specialty Start Date End Date Provider, MD Pola [address] [place] [address] PCP - General Pediatrics 05/12/22 08/16/24 documented as of this encounter
--- OUTSIDE RECORDS SUMMARY | 2025-08-24 16:06 | XMS_ITS | Encounter Summary ---
Author Organization [facility] Address [address] [place] [address] Phone Care Team Providers Care Bell Neck Hammerer Name Role Phone Provider, Pola DE LEON Primary Care Provider Encounter Details Date Type Department Care Team (Late st Contact Info) Description 01/06/2010 Documentation [facility] [place] [address] [place] [address] Family Medicine, Physician [address] [place], [place] [address] Social History Tobacco Use Types Packs/Day Years [...] on filedocumented in this encounter Care Teams Bell Neck Hammerer Relationship Specialty Start Date End Date Provider, MD Pola [address] [place] [address] PCP - General Pediatrics 05/12/22 08/16/24 documented as of this encounter
--- OUTSIDE RECORDS SUMMARY | 2025-08-24 16:06 | XMS_ITS | Clinical Summary ---
Author Organization [facility] ity Address [address] [place] [address] Care Team Providers Care Bottling Machine Operator Name Role Phone Unavailable Primary [...]
== END 2025-08-24 16:33 | disposition home or self-care (01) ==
LOC: HO.HGI 14:28
PROVIDERS: PCP Family Medicine; Visit Provider Nurse Practitioner Family
DX: R14.0 Abdominal distension (gaseous) (principal); R10.9 Unspecified abdominal pain

== ENCOUNTER 2025-10-05 15:13 | Outpatient (AMB) | payer MEDICARE, MEDICAID, SELFPAY ==
--- NOTE | 2025-10-05 15:15 | A.OFFVIS_ITS ---
Vital Signs 10/05/25 15:24 Height 6 ft 3 in Weight 196 lb 3.382 oz BMI 24.5 BP 98/57 L Blood Pressure Location Lt brachial Position Sitting Pulse 80 Intake Visit Reasons: flu Intake Note: Nash presents in the office as a follow up. CC: No concerns at this time. Being treated for Lymes at this time. Scientific Recruiter Required: No Allergies guaifenesin Allergy (Mild, Verified 08/09/25 14:38) ticks HPI HPI flu: Details: LAST VISIT: Abdominal discomfort Bloating GERD (gastroesophageal reflux disease) Plan Schedule h pylori breath test today. Will stop pantoprazole for 2 weeks prior to H. pylori breath test. Will put on famotidine 20mg BID in the meantime. Stop 24- 48 hours before breath test. Avoid dietary triggers and late night snacking.? Staying upright for minimal 3 hours after meals discussed with patient.? Patient will followGERD/low FODMAP diet.? List of food recommended as well as list of food to avoid given to patient. GI barium swallow in August and follow up in office in September or sooner if needed. Both patient and his mother are agreeable to plan of care and verbalizes understanding of instructions. They were given the opportunity to ask questions and all questions answered. ? Thank you for allowing me to participate in his care New famotidine (Pepcid) 20 mg PO BID 30 tabs 0RF K29.70 TODAY'S VISIT Patient is here today for follow-up and to discuss test results. Patient is accompanied by his mom. Patient tested positive for Lyme and is being treated, however did not start antibiotics yet. Patient tested negative for H pylori. He is not taking any PPI or H2 diane this time. His symptoms of frequent belching and acid reflux have subsided. Patient however does recognize that when he eats something with tomato sauce or even fresh some tomatoes he will have symptoms. Lab work and upper GI with barium swallow results discussed with patient. Celiac study negative. Patient was found to have no reflux and normal esophagus and stomach on upper GI with barium swallow. Patient's mother reports that he will start the treatment for Lyme disease. [facility] Medical History Tourettes syndrome Surgical History No pertinent past surgical history Family History Mother Diabetes High blood pressure Father Lyme disease Maternal Grandmother Atrial fibrillation and flutter Maternal Aunt Atrial fibrillation and flutter Irregular heart beat Other FH: mental illness Social History Housing: House Alcohol intake: never Patient Tobacco Use Status: Never used Tobacco e-Cigarette/Vaping Use: Never Used Second Hand Smoke Exposure: No service: No Current occupational exposures/hazards: No Cognitive needs: No Hearing needs: No Vision needs: No Review of Systems Const Denies weight gain and Denies weight loss ENT Reports no additional complaints, Denies dysphagia and Denies odynophagia Card Reports no additional complaints Resp Reports no additional complaints GI Denies abdominal pain, Denies belching, Denies melena, Reports bloating (Occasional), Denies change in bowel habits, Denies dysphagia, Denies excessive flatus, Denies dyspepsia, Denies heartburn, Denies diarrhea, Denies loose stools, Denies nausea, Denies odynophagia and Denies vomiting Reports no additional complaints Musc Reports no additional complaints Neuro Reports no additional complaints Psych Reports no additional complaints Endo Reports no additional complaints Physical Exam Vital Signs: Last Vital Signs Pulse 80 10/05/25 15:24 BP 98/57 L 10/05/25 15:24 BMI result Body Mass Index 24.5 Const General: healthy appearing, no acute distress and well developed Nutritional Appearance: well nourished Orientation/consciousness: patient oriented x3 Resp Effort & Inspection: normal respiratory effort, able to speak in complete sentences, no tracheal deviation and symmetric chest movement Auscultation: clear to auscultation bilaterally Cardio Rate: regular rate GI Inspection: Yes normal to inspection and No distended Palpation (GI): Soft to palpation, not firm, nontender and No hepatosplenomegaly present Auscultation: normal bowel sounds General: Yes no CVA tenderness Back/Spine/Pelvis Back: no CVA tenderness Skin General skin exam: elasticity normal, turgor normal and dry skin Neuro General: patient oriented x3 Psych Appearance: grossly normal Mental Status: mental status grossly normal Results Reviewed Results Reviewed: UPPER GI WITH BARIUM SWALLOW 08/21/2025 FINDINGS Swallowing: Normal swallowing reflex. Normal motility. No penetration or aspiration events occurred throughout the procedure. Esophagus: Normal caliber and motility.. No esophageal mass or ulceration is seen. No fixed stricture is seen. Patient swallowed a barium pill, with normal passage to the stomach. Gastroesophageal Reflux: None. No spontaneous reflux noted during the examination. Stomach and proximal bowel: No mass or mucosal lesions identified.. There is normal passage of the barium through the stomach to the bowel. FL/FL upper GI w air w Ba Swallow IMPRESSION: No significant abnormality identified by barium study. Assessment & Plan Assessment & Plan (1) Abdominal discomfort: Code(s): R10.9 - Unspecified abdominal pain Category: Medical (2) Bloating: Code(s): R14.0 - Abdominal distension (gaseous) Category: Medical (3) Gastroesophageal reflux disease: Code(s): K21.9 - Gastro-esophageal reflux disease without esophagitis Qualifiers: Esophagitis presence: esophagitis presence not specified Qualified Code(s): K21.9 - Gastro-esophageal reflux disease without esophagitis Plan Patient will continue avoiding dietary triggers and late night snacking. Staying upright for minimum 3 hours after meals discussed with patient. Patient will start taking omeprazole as he will begin treatment for H pylori. Follow-up in 3 months, sooner on as needed basis. Patient is agreeable to this plan and v erbalizes understanding of instructions. He was given the opportunity to ask questions and all questions answered. Thank you for allowing me to participate in his care Medications: New omeprazole 20 mg PO DAILY 90 caps 2RF K21.9 - Gastro-esophageal reflux disease without esophagitis Coding Level of Care Code Est Pt Level 3 (92769) Diagnoses Abdominal discomfort R10.9 Bloating R14.0 Gastroesophageal reflux disease, unspecified whether esophagitis present K21.9 Esophagitis presence: esophagitis presence not specified Time Spent (min) 30 Comment 20 minutes spent with patient and additional 10 minutes spent reviewing his records
[2025-10-05 15:24] VITALS: BP 98/57; PULSE 80; BMI 24.5
--- OUTSIDE RECORDS SUMMARY | 2025-10-05 16:24 | XMS_ITS | Clinical Summary ---
Author Organization [facility] Address [address] [place] [address] Phone Care Team Providers Care Weigher And Grader Name Role Phone Unavailable Primary Care Provider [...] Health Maintenance Due Date Last Done Comments Influenza Vaccines (#1) 2025 COVID-19 Vaccine ( season) 2025 08/26/2021 DTaP,Tdap,and Td Vaccines (8 [...] Hepatitis A Vaccines Completed 07/21/2019, 07/20/20 18 Men B Vaccine Aged Out No longer elig meka based on patient's age to complete this topic Insurance NON [facility] NON PCC
--- OUTSIDE RECORDS SUMMARY | 2025-10-05 16:24 | XMS_ITS | Encounter Summary ---
Author Organization [facility] Address [address] [place] [address] Phone Care Team Providers Care Social Media Executive Name Role Phone Provider, Pola DE LEON Primary Care Provider [phone] Encounter Details Date Type Department Care Team (Late st Contact Info) Description 05/12/2010 Documentation [facility] [place] Family Medicine [address] [place] [address] Family Medicine, Physician [address] [place], [place] [address] Social History Tobacco Use Types Packs/Day Years [...] on filedocumented in this encounter Care Teams Social Media Executive Relationship Specialty Start Date End Date Provider, MD Pola [address] [place] [address] PCP - General Pediatrics 05/12/22 08/16/24 documented as of this encounter
--- OUTSIDE RECORDS SUMMARY | 2025-10-05 16:24 | XMS_ITS | Encounter Summary ---
Author Organization [facility] Address [address] [place] [address] Phone Care Team Providers Care Personnel Analyst Name Role Phone Provider, Pola DE LEON Primary Care Provider Encounter Details Date Type Department Care Team (Late st Contact Info) Description 03/11/2010 Documentation [facility] [place] [address] [place] [address] Family Medicine, Physician [address] [place], [place] [address] Social History Tobacco Use Types Packs/Day Years [...] on filedocumented in this encounter Care Teams Personnel Analyst Relationship Specialty Start Date End Date Provider, MD Pola [address] [place] [address] PCP - General Pediatrics 05/12/22 08/16/24 documented as of this encounter
--- OUTSIDE RECORDS SUMMARY | 2025-10-05 16:24 | XMS_ITS | Encounter Summary ---
Author Organization [facility] Address [address] [place] [address] Phone Care Team Providers Care Photovoltaic Solar Cell Designer Name Role Phone Provider, Pola DE LEON Primary Care Provider [phone] Encounter Details Date Type Department Care Team (Late st Contact Info) Description 03/06/2018 [facility]counter [facility] [address] [address] Cyndy Good MD [address] [place] [address] Social History Tobacco Use Types Packs/Day Years [...] on filedocumented in this encounter Care Teams Photovoltaic Solar Cell Designer Relationship Specialty Start Date End Date Provider, MD Pola [address] [place] [address] PCP - General Pediatrics 05/12/22 08/16/24 documented as of this encounter
--- OUTSIDE RECORDS SUMMARY | 2025-10-05 16:24 | XMS_ITS | Clinical Summary ---
Author Organization [facility] ity Address [address] [place] [address] Care Team Providers Care Construction Plant Operator Name Role Phone Unavailable Primary Care [...] (1 - Male 3-dos e series) 2016 DTaP,Tdap,and Td Vaccines (1 - Tdap) 2020 Hepatitis B Vaccines (1 of 3 - 19+ 3-dose series) 2020 HIV Screening 11/12/2023 Hepatitis C Screening 11/12/2023 Social Influencers of Health Screening 11/12/2023 Depression Screening 10/18/2024 COVID-19 Vaccine (1 - 2024-2 6 season) 2025 Influenza Vaccine (#1) 2025 RSV [...] patient's age to complete this topic Meningococcal B Vaccine Aged Out No l onger eligible based on patient's age to complete [...]
--- OUTSIDE RECORDS SUMMARY | 2025-10-05 16:24 | XMS_ITS | Data Portability ---
Author Organization DAMARIS Gottlieb s [address] Address [address] [place] [id number] Assessment No assessment recorded. Plan of Treatment Reminders Order Date Submit Date Provider Last Modified By Organization Details Last Modified Time Details Appointments None recorded. Lab None recorded. Referral orthopedic surgeon referral 2022 023 [email or web address] [facility], [address], [place], [address], 16:55:19 Procedures None recorded. Surgeries None recorded. [...] Limited extension of the elbow. 2022 023 [facility], [address] [place] [address], [address], 14:51:31 Medication Orders ibuprofen 600 mg tablet 2022 023 [id number], [address] [facility], [place], [address], 14:14:35 Patient TargetsNo targets recorded. Patient Instructions Encounter Date Encounter Id Patient Instructions Last Modified By Organization Details Last Modified Time 01/30/2023 [id number] elbow sprain: care instructions [email or web address] Not available 01/30/2023 14:14:24 elbow bursitis: exercises [email or web address] Not available 01/30/2023 14:14:24 Reason for Referral Orthopedic Surgeon Referral for Fracture of distal end of humerus Referring Physician: Xiao Drake, Urgent Care, Encounter Date: 01/30/2023 Results Created Date Observation Date Name Description Value Unit Range Abnormal Flag Note LastModifiedBy Organization Detail LastModifiedTime 01/31/20 23 01/30/2023 XR, elbow , 3 or more view No observ ation record ed. [facility] [address] [place], [address], 01/30/2023 15:29:09 Result Notes None recorded. Problems Name Problem SNOMED Code Status Onset Date Resolution Date Notes Provider Name and Address Organization Details Recorded Time Anxiety 30485357 Active 2022 PIPO l[place]hani, [place] - [facility] 3 13:21:56 Attention deficit hyperactivity disorder, predominantly inattentive type 08583851 Active 2022 [facility] [place] [facility] [...] temperature Respiratory rate Heart rate Oxygen saturation Systolic And Diastolic Provider Name and Address Organization Details Last Updated DateTime 190.5 cm 21.2 kg/m2 51591.7 g 97.8 [degF] 18 /min 82 /min 100 % 110/63 mm[Hg] PIPO Kraus [place] - [facility] 13:23:31 Social History Question Answer Notes LastModified by anfix Details LastModified Time Tobacco Smoking Status Never [...] Functional Status Question Answer Note LastModified by anfix Details LastModified Time Do you use any [...] ICD10 Code Diagnosis IMO Codes Diagnosis [facility] [id number] [facility] [address] [address] [place] [phone] 02/09/2019 10:41:33 02/09/2019 11:32:01 [id number] [facility] [address] [facility] [place] [phone] 11/18/2016 17:05:51 11/18/2016 18:09:[id number] [place] [address] [address] [address] [place] [phone] 05/22/2016 18:31:22 05/22/2016 19:27:[id number] [place] [address] [address] [facility] [address] [address] 09/06/2021 14:10:40 09/06/2021 16:18:[id number] [place] [address] [address] [facility] [address] [address] 06/03/2017 14:35:22 06/03/2017 15:24:58 [id number] DAMARIS KIDD [address] [address] [place] [address] 01/30/2023 12:42:42 01/30/2023 14:24:56 Contusion of right elbow [id number] S50.01XA X-ray shows some effusion in the [...] Fracture o f distal end of humerus 783074332 S42.401A Will need to see orthopedis t [...] Beatty Member ID Guarantor Name 01/30/2023 1 [facility] [employer] [facility] TOGETHER WITH [facility] (MEDICAID HMO) [id number] Nash Grey [id number] Nash Grey 01/30/2023 1 MEDICARE B-[place]: [place] Funding Nashrigo Grey [id number] Nash Grey 01/30/2023 2 [place] [facility] Nashrigo Grey [id number] Nash Grey Notes Date Note Type Note [...] LOC. DAMARIS KIDD [address] [place], [address], [place] - [facility] 01/30/2023 15:33:47
--- OUTSIDE RECORDS SUMMARY | 2025-10-05 16:24 | XMS_ITS | Encounter Summary ---
Author Organization [facility] Address [address] [place] [address] Phone Care Team Providers Care Division Superintendent Name Role Phone Provider, Pola DE LEON Primary Care Provider [phone] Encounter Details Date Type Department Care Team (Late st Contact Info) Description 01/06/2010 Documentation [facility] Family Medicine [address] [place] [address] Family Medicine, Physician [address] [place], [place] [address] Social History Tobacco Use Types Packs/Day Years [...] on filedocumented in this encounter Care Teams Division Superintendent Relationship Specialty Start Date End Date Provider, MD Pola [address] [place] [address] PCP - General Pediatrics 05/12/22 08/16/24 documented as of this encounter
--- OUTSIDE RECORDS SUMMARY | 2025-10-05 16:24 | XMS_ITS | Encounter Summary ---
Author Organization [facility] Address [address] [place] [address] Phone Care Team Providers Care Printing Technician Name Role Phone Provider, Pola DE LEON Primary Care Provider [phone] Encounter Details Date Type Department Care Team (Late st Contact Info) Description 06/03/2017 Conversion Encounter [facility] - [address] [address] Social History Tobacco Use Types Packs/Day Years [...] on filedocumented in this encounter Care Teams Printing Technician Relationship Specialty Start Date End Date Provider, MD Pola [address] [place] [address] PCP - General Pediatrics 05/12/22 08/16/24 documented as of this encounter
== END 2025-10-05 15:36 | disposition home or self-care (01) ==
LOC: HO.HGI 15:13
PROVIDERS: PCP Family Medicine; Visit Provider Nurse Practitioner Family
DX: R10.9 Unspecified abdominal pain (principal); R14.0 Abdominal distension (gaseous); K21.9 Gastro-esophageal reflux disease without esophagitis
CPT/HCPCS: 99213

== ENCOUNTER → 2025-10-05 15:13 | Outpatient (BNVA) | payer MEDICARE, MEDICAID, SELFPAY | PROVIDERS: PCP Family Medicine; Visit Provider Nurse Practitioner Family | DX: K21.9 Gastro-esophageal reflux disease without esophagitis (principal); R14.0 Abdominal distension (gaseous); R10.9 Unspecified abdominal pain | CPT/HCPCS: 99212 ==